=== PATIENT | male | born 2000 | race Caucasian/White ===

== ENCOUNTER → 2020-08-07 13:01 | Outpatient (BNVA) | payer OTHER, SELFPAY | PROVIDERS: Visit Provider Physician Assistant Medical | DX: M46.1 Sacroiliitis, not elsewhere classified (principal) | CPT/HCPCS: 99213 ==

== ENCOUNTER → 2020-08-21 12:53 | Outpatient (BNVA) | payer OTHER, SELFPAY | PROVIDERS: Visit Provider Physician Assistant Medical | DX: M46.1 Sacroiliitis, not elsewhere classified (principal); G57.02 Lesion of sciatic nerve, left lower limb | CPT/HCPCS: 99213 ==

== ENCOUNTER → 2020-09-09 15:15 | Outpatient (BNVA) | payer OTHER, SELFPAY | PROVIDERS: Visit Provider Physician Assistant Medical | DX: M46.1 Sacroiliitis, not elsewhere classified (principal); G57.02 Lesion of sciatic nerve, left lower limb | CPT/HCPCS: 99213 ==

== ENCOUNTER → 2020-10-02 12:59 | Outpatient (BNVA) | payer OTHER, SELFPAY | PROVIDERS: Visit Provider Physician Assistant Medical | DX: M46.1 Sacroiliitis, not elsewhere classified (principal); G57.02 Lesion of sciatic nerve, left lower limb | CPT/HCPCS: 99213 ==

== ENCOUNTER 2020-10-24 08:41 | Outpatient (REF) | payer OTHER, SELFPAY | END 2020-10-24 08:42 | disposition home or self-care (01) | LOC: HO.LAB 08:41 | PROVIDERS: Visit Provider Internal Medicine | DX: Z20.822 Contact with and (suspected) exposure to COVID-19 (principal) | CPT/HCPCS: 36415; C9803; U0003 ==

== ENCOUNTER 2020-12-03 15:00 | Outpatient (RCR) | payer OTHER, SELFPAY ==
--- NOTE | 2020-08-17 16:36 | MHC.PT.EP ---
[facility] [place] Office [place] Office [place] Office [address] Jannet Gustafson [address] [phone] F: [phone] F: [phone] F: [phone] F: [phone] Physical Therapy Plan of Care Date of Evaluation: 08/17/20 Date of Surgery: Diagnosis: L SI flare, piriformis syndrome Assessment: This is a 20 y/o male referred to skilled PT for L SI joint flare/piriformis syndrome. DESIREE: work related injury, slipped off a step and fell onto his left side. The injury occurred 2 months ago. He also had a concussion. Assessment of the lumbar spine and hips reveals pain and tenderness to palpation @ the L SI joint, impaired gait, impaired posture with mild left lateral trunk lean, impaired lumbar spine ROM, (+) SIJ provocation tests, impaired hip ROM, guarded movements, increased tissue tension, decreased strength, pain with PA mobs to lumbar spine, impaired muscle length and SI joint asymmetries. Signs and symptoms appear consistent with SI joint dysfunction. Related functional limitations include: difficulty standing, walking, performing bed mobility, squatting, hiking, playing sports, and lifting. Pt will benefit from skilled PT services 2x/week for 5 weeks in order to reduce impairments and improve limitations. Frequency and Duration: The patient will be seen 2x/week for 5 weeks, minimum of 38 minutes Short Term Goals: -In 2 weeks, Pt to report less than 6/10 pain w/ standing and walking. 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 -In 5 weeks, Pt to demonstrate the ability to perform a functional squat w/o pain. Treatment Plan: Modalities to reduce pain, spasms and effusion. Manual therapy to restore motion and function. Therapeutic exercise to improve strength and flexibility. Neuromuscular re-education for posture and balance. Therapeutic activities to return to functional activities of daily living. Sacroiliac joint assessment and muscle energy techniques. Please sign and return to therapist. Thank you for your referral.
--- NOTE | 2020-12-04 12:35 | MHC.PT.DC ---
[facility] [place] Office [place] Office [place] Office [address] Jannet Gustafson [address] [phone] F: [phone] F: [phone] F: [phone] F: [phone] Physical Therapy Discharge Report Diagnosis: L SI flare, piriformis syndrome Date of Surgery: Date of Evaluation: 08/17/20 Date of Discharge: 12/03/20 Treatments to Date: 21 Cancellations to Date: 4 No Shows to Date: 0 Discharge Status: Achieved Goals Improved Function Independent with HEP Discharge Summary: Pt prepared for D/C today. He demonstrates the ability to complete all exercises w/ resistance and minimal cues for form/core activation. HALINA: 17/50 or 34% impaired. Has HEP and bands. No adverse response. Electronically signed by: Yajaira Lucero PT, DPT Please sign and return to therapist. Thank you for your referral.
== END 2020-12-04 12:51 | disposition other institution (70) ==
LOC: HO.PT 15:00
PROVIDERS: Visit Provider Physician Assistant Medical
DX: M54.32 Sciatica, left side (principal)
CPT/HCPCS: 97014; 97110; 97140; 97161; 97530

== ENCOUNTER → 2020-12-09 11:37 | Outpatient (BNVA) | payer OTHER, SELFPAY | PROVIDERS: PCP Nurse Practitioner Family; Visit Provider Physician Assistant Medical ==

== ENCOUNTER 2020-12-18 08:46 | Outpatient (REF) | payer OTHER, SELFPAY ==
[2020-12-18 09:22] LABS: Basophils Percent Auto 0.4 % (0-2); Eosinophils Absolute Auto 0.3 X10*3/uL (0.0-0.4); Eosinophils Percent Auto 3.2 % (0-4); Hematocrit 46.7 % (42-52); Imm Gran Abs Auto 0.03 X10*3/uL (0.00-0.03); Imm Gran Pct Auto 0.4 % (0.0-0.4); Lymphocytes Absolute Auto 1.7 X10*3/uL (1.2-4.9); Lymphocytes Percent Auto 21.2 % (20-40); MANUAL DIFF FLAG NO; Mean Corpuscular HGB Conc 34.3 g/dl (31.0-36.0); Mean Corpuscular Hemoglobin 28.8 pg (27.0-33.0); Mean Platelet Volume 9.2 fL (9.4-12.4); Monocytes Absolute Auto 0.5 X10*3/uL (0.1-1.2); Monocytes Percent Auto 6.3 % (2-11); Neutrophils Absolute Auto 5.4 X10*3/uL (2.0-8.3); Neutrophils Percent Auto 68.5 % (45-73); Platelet Count 206 X10*3/uL (160-400); Red Blood Count 5.56 X10*6/uL (4.60-5.80); Red Cell Distribution Width 12.5 % (11.0-16.0); White Blood Count 7.9 X10*3/uL (4.8-10.8)
[2020-12-18 10:19] LABS: Anion Gap 14 (12-20); Blood Urea Nitrogen 15 mg/dL (9-16); Calcium 9.2 mg/dL (8.4-10.2); Carbon Dioxide 29 mmol/L (22-29); Chloride 102 mmol/L (96-108); Estimated Glomerular Filt Rate > 60; Glucose Fasting 95 mg/dL (60-99); Potassium 4.3 mmol/L (3.3-5.1); Sodium 141 mmol/L (135-145)
== END 2020-12-18 08:47 | disposition home or self-care (01) ==
LOC: HO.LAB 08:46
PROVIDERS: PCP Internal Medicine; Visit Provider Nurse Practitioner Family
DX: L02.419 Cutaneous abscess of limb, unspecified (principal)
CPT/HCPCS: 36415; 80048; 85025

== ENCOUNTER → 2020-12-18 10:27 | Outpatient (BNVA) | payer OTHER, SELFPAY | PROVIDERS: PCP Nurse Practitioner Family; Visit Provider Physician Assistant Medical | DX: G57.02 Lesion of sciatic nerve, left lower limb (principal); M46.1 Sacroiliitis, not elsewhere classified | CPT/HCPCS: 99213 ==

== ENCOUNTER 2020-12-31 14:13 | Outpatient (REF) | payer OTHER, SELFPAY ==
--- NOTE | ~2020-12-31 | MR_ITS ---
EXAMINATION: MR LUMBAR SPINE WITHOUT CONTRAST CLINICAL INFORMATION: Persistent low back pain radiating to left buttocks. COMPARISON: X-ray lumbar spine dated 05/11/2020. TECHNIQUE: MRI of the lumbar spine was obtained using routine sequences without contrast. FINDINGS: VERTEBRAL BODIES AND PARASPINAL STRUCTURES: There is a mild leftward curvature of the lumbar spine. No compression fractures or subluxations are seen. Small degenerative endplate Schmorl's nodes noted at the lower thoracic levels. The discs are well-hydrated. The marrow signal is fairly homogeneous. The paraspinal soft tissues are unremarkable. The imaged bony pelvis appears normal. CONUS MEDULLARIS AND CAUDA EQUINA: Normal, terminating at the level of L1. No lower cord signal abnormality is seen. The cauda equina nerve roots are normal. A small fatty filum is visible. SPINAL LEVELS: The discs are well-hydrated without central canal stenosis or foraminal narrowing. Mild mid lumbar facet arthropathy noted. There is a very small central disc protrusion at L5-S1 level. MR/MR lumbar spine wo con IMPRESSION: Mild mid lumbar facet arthropathy. Very small central disc protrusion at L5-S1. Otherwise, relatively normal MRI of the lumbar spine.
== END 2020-12-31 14:14 | disposition home or self-care (01) ==
LOC: HO.MRI 14:13
PROVIDERS: Visit Provider Internal Medicine
DX: M54.5 Low back pain (principal)
CPT/HCPCS: 72148

== ENCOUNTER → 2021-01-08 10:33 | Outpatient (BNVA) | payer OTHER, SELFPAY | PROVIDERS: PCP Nurse Practitioner Family; Visit Provider Physician Assistant Medical | DX: G57.02 Lesion of sciatic nerve, left lower limb (principal); M46.1 Sacroiliitis, not elsewhere classified | CPT/HCPCS: 99213 ==

== ENCOUNTER → 2021-02-08 12:59 | Outpatient (BNVA) | payer OTHER, SELFPAY | PROVIDERS: PCP Nurse Practitioner Family; Visit Provider Physician Assistant | DX: G57.02 Lesion of sciatic nerve, left lower limb (principal); M53.3 Sacrococcygeal disorders, not elsewhere classified; F07.81 Postconcussional syndrome | CPT/HCPCS: 99213 ==

== ENCOUNTER 2021-02-18 10:54 | Outpatient (RCR) | payer OTHER, SELFPAY ==
--- NOTE | 2021-02-18 12:08 | MHC.PT.EP ---
[facility] [place] Office [place] Office [place] Office [address] Jannet Gustafson [address] [phone] F: [phone] F: [phone] F: [phone] F: [phone] Physical Therapy Plan of Care Date of Evaluation: Date of Surgery: Diagnosis: persisting L SI/piriformis pain Assessment: 21 y/o M referred to PT from work connection with persisting L SI/piriformis pain. 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 While at work, he fell off an F650 truck backwards landing on his low back and left hip and hit his head. States he had a concussion. He was OOW for one week and then he returned to work part-time for light-duty. He was on light duty part-time until September 2020, when he was let go since the car dealership needed full-time position. He has been OOW since. Of note, he had chiropracter services (states it felt good while he was there but then the pain would be worse later.) He also had 21 visits of PT here from 08/17/2020 - 12/03/2020. He reports PT was helpful and he still does the exercises occasionally but the pain never resolved and pain has worsened as he tries to do more activities. He currently reports difficulty with sleeping, standing, lifting, walking, sitting, hiking, and sports. Examination shows decreased lumbar AROM, decreased L hip IR AROM, decreased strength of L LE, pain L piriformis and low back, SI dysfunction, and impaired postural awareness. S/s consistent with lumbar derangement and SI dysfunction. Recommend PT 2x/week for 5 weeks to address impairments, implement HEP, and optimize functional mobility. Educated pt on posture, use of lumbar roll, log-roll technique, and precautions of exercise. Frequency and Duration: The patient will be seen 2x/week for 5 weeks Short Term Goals: 3 weeks 1. I with HEP 2. Improve lumbar AROM to WNL 3. Pt will demonstrate neutral spine sitting posture 4/5x Penitentiary Goals: 5 weeks 1. I with HEP and self management of sx 2. Pt will demonstrate improved SI mechanics to facilitate walking > 45 min with pain < 3/10 3. Pt will be able to stand > 20 min with pain < 3/10 Treatment Plan: Modalities to reduce pain, spasms and effusion. Manual therapy to restore motion and function. Therapeutic exercise to improve strength and flexibility. Neuromuscular re-education for posture and balance. Therapeutic activities to return to functional activities of daily living. Electronically signed by: Diana Gunderson PT Please sign and return to therapist. Thank you for your referral.
--- NOTE | 2021-02-23 08:01 | MHC.PT.DC ---
[facility] [place] Office [place] Office [place] Office [address] Jannet Gustafson [address] [phone] F: [phone] F: [phone] F: [phone] F: [phone] Physical Therapy Discharge Report Diagnosis: persisting L SI/piriformis pain Date of Surgery: Date of Evaluation: 02/18/21 Date of Discharge: 02/23/21 Treatments to Date: 1 Cancellations to Date: 0 No Shows to Date: 0 Discharge Status: Insurance Declined Tx Discharge Summary: Insurance declined coverage and pt therefore self d/c. Electronically signed by: Diana Gunderson PT Please sign and return to therapist. Thank you for your referral.
== END 2021-02-23 11:15 | disposition other institution (70) ==
LOC: HO.PT 10:54
PROVIDERS: PCP Physician Assistant; Visit Provider Physician Assistant
DX: M54.42 Lumbago with sciatica, left side (principal)
CPT/HCPCS: 97110; 97140; 97161

== ENCOUNTER → 2021-02-25 09:39 | Outpatient (BNVA) | payer OTHER, SELFPAY | PROVIDERS: PCP Physician Assistant; Visit Provider Physician Assistant Medical | DX: G57.02 Lesion of sciatic nerve, left lower limb (principal); S33.6XXD Sprain of sacroiliac joint, subsequent encounter; S06.9X0D Unspecified intracranial injury without loss of consciousness, subsequent encounter; X58.XXXD Exposure to other specified factors, subsequent encounter | CPT/HCPCS: 99213 ==

== ENCOUNTER → 2021-04-02 10:37 | Outpatient (BNVA) | payer OTHER, SELFPAY | PROVIDERS: PCP Physician Assistant; Visit Provider Internal Medicine | DX: G57.02 Lesion of sciatic nerve, left lower limb (principal); M53.2X8 Spinal instabilities, sacral and sacrococcygeal region; S06.9X0D Unspecified intracranial injury without loss of consciousness, subsequent encounter; X58.XXXD Exposure to other specified factors, subsequent encounter | CPT/HCPCS: 99213 ==

== ENCOUNTER 2021-05-26 11:38 | Outpatient (REF) | payer OTHER, SELFPAY ==
--- NOTE | ~2021-05-26 | XR_ITS ---
EXAMINATION: XR CERVICAL SPINE CLINICAL INFORMATION: Cervicalgia. COMPARISON: None TECHNIQUE: 3 views of the cervical spine were obtained. FINDINGS: There are no prevertebral soft tissue or bony abnormalities demonstrated. No compression fractures or subluxations are identified. Alignment is maintained at the atlanto-axial articulation. The disc spaces are preserved. No endplate changes are seen. The prevertebral soft tissues are normal. The foramina are patent. XR/XR cervical spine 3V IMPRESSION: Unremarkable examination.
== END 2021-05-26 11:39 | disposition home or self-care (01) ==
LOC: HO.XRAY 11:38
PROVIDERS: PCP Physician Assistant; Visit Provider Physician Assistant
DX: M54.2 Cervicalgia (principal)
CPT/HCPCS: 72040

== ENCOUNTER 2021-07-07 10:00 | Outpatient (RCR) | payer OTHER, SELFPAY ==
--- NOTE | 2021-05-25 13:00 | MHC.PT.EP ---
[facility] [place] Office [place] Office [place] Office [address] Jannet Gustafson [address] [phone] F: [phone] F: [phone] F: [phone] F: [phone] Physical Therapy Plan of Care Date of Evaluation: Date of Surgery: Diagnosis: CERVICALGIA Assessment: 21 YO MALE REF TO PT FOR CERVICALGIA- HE NOTES RESIDUAL FROM A FALL HE SUSTAINED FROM AN F650 TRUCK ONTO PAVEMENT IN 04/2020. OBJECTIVE FINDINGS INCLUDE DECR POSTURE, LIMITED CERVICAL ROM, SOFT TISSUE RESTRICTION IN ACE UPPER CERV/ SUBOCC PS MM, AND PAIN CENTRAL CERV APPROX C3 LEVEL. FUNCTIONAL LIMITATIONS INCLUDE DECR SLEEPING ABILITY, DECR LIFTING JASSON, GENERAL DECR MOBILITY W ADLs- HE IS CURRENTLY UNEMPLOYED. Pt HAS AN ORDER FOR AN XRAY AND WILL PURSUE THIS MONDAY AND WILL GUIDE TREATMENTS ACCORDINGLY TO ASIST Pt W PAIN MGMT , MOBILITY, AND DEV HEP/ SX MGMT TECHN. Frequency and Duration: The patient will be seen 2x WK x 5 WKS Short Term Goals: Pt's cervical pain decr to 2-3/10 in 2 wks Pt DEMON WFL CERVICAL AROM, ESPEC ACE CERV ROTAT IN 2 WKS Pt INDEP W SELF- POSTURAL/ BODY MECH CORRECTION IN 2 WKS Residential Goals: Pt INDEP W HEP AND SELF- SX MGMT TECHN IN 5 WKS Pt'S NPDI IMPROVED BY10 POINTS IN 5 WKS Treatment Plan: Modalities to reduce pain, spasms and effusion. Manual therapy to restore motion and function. Therapeutic exercise to improve strength and flexibility. Neuromuscular re-education for posture and balance. Therapeutic activities to return to functional activities of daily living. Electronically signed by: Carin Haas, PT Please sign and return to therapist. Thank you for your referral.
--- NOTE | 2021-08-06 14:45 | MHC.PT.DC ---
[facility] [place] Office [place] Office [place] Office [address] Jannet Gustafson [address] [phone] F: [phone] F: [phone] F: [phone] F: [phone] Physical Therapy Discharge Report Diagnosis: CERVICALGIA Date of Surgery: Date of Evaluation: 05/25/21 Date of Discharge: 08/06/21 Treatments to Date: 10 Cancellations to Date: 0 No Shows to Date: 0 Discharge Status: Improved Function Independent with HEP Discharge Summary: Familia has progressed overall in PT and demonstrates increased upper back strength, improved postural awareness, improved body mechanics and is RTW. He received cervical traction, manual techniques, therapeutic taping, and progressive ther exer. His cervical rotation remains limited, right greater than left. Electronically signed by: Carin Haas,PT Please sign and return to therapist. Thank you for your referral.
== END 2021-08-06 14:44 | disposition home or self-care (01) ==
LOC: HO.PT 10:00
PROVIDERS: PCP Physician Assistant; Visit Provider Physician Assistant
DX: M54.2 Cervicalgia (principal)
CPT/HCPCS: 97012; 97110; 97112; 97140; 97162; 97530

== ENCOUNTER 2022-08-11 07:48 | Outpatient (REF) | payer OTHER, SELFPAY ==
--- NOTE | ~2022-08-11 | MR_ITS ---
EXAMINATION: MR CERVICAL SPINE WITHOUT CONTRAST CLINICAL INFORMATION: Neck pain. COMPARISON: X-ray dated 05/26/2021. TECHNIQUE: MRI of the cervical spine was obtained using routine sequences without contrast. FINDINGS: The marrow signal is homogeneous and the discs are well-hydrated. There are no compression fractures. Mild uncovertebral joint spurring noted at the C3-C4 level without foraminal encroachment. Tiny central disc protrusion at C5-C6. No additional disc protrusions are seen. The central canal is widely patent. The remaining neural foramina are normal. The facet joints are normal in appearance. The craniovertebral junction and imaged portions of the brain parenchyma appear normal. No cord signal abnormality or syrinx is seen. The vertebral artery flow-voids are maintained. The paraspinal soft tissues are normal. The imaged lung apices are grossly clear. MR/MR cervical spine wo con IMPRESSION: Aside from a tiny central disc protrusion at C5-C6 and mild uncovertebral joint spurring at the C3-C4 level, relatively normal MRI of the cervical spine.
== END 2022-08-11 07:49 | disposition home or self-care (01) ==
LOC: HO.MRI 07:48
PROVIDERS: Visit Provider Physician Assistant
DX: M54.2 Cervicalgia (principal)
CPT/HCPCS: 72141

== ENCOUNTER → 2023-03-27 13:31 | Outpatient (REF) | payer OTHER, SELFPAY ==
--- NOTE | 2023-03-27 13:34 | CA_ITS ---
Acquisition Time: 2023-03-27 13:47:44 Total Exercise Time: 00:10:32 Test Indications: CP, ELEVATED B/P Medications: SEE H Protocol: NOVA Max HR: 179 BPM 91% of Pred: 195 BPM Max BP: 188/050 mmHG Max Work Load: 12.5 METS Exercise stress test with exercise 10 min 32 sec of Nova protocol, achieving 91% MPHR, 12.5 METs, without anginal symptoms, without arrythmia, with normotensive response to exercise with max BP 188/50, without EKG changes meeting criteria for ischemia. Test reviewed with Dr Munguia. Referred By: Marleny Price Overread By: JOSEPH DICKENS
== END ==
LOC: HO.CARD 13:31
PROVIDERS: Visit Provider Nurse Practitioner Family
DX: R07.89 Other chest pain (principal)
CPT/HCPCS: 93017

== ENCOUNTER 2023-07-17 09:57 | Outpatient (AMB) | payer OTHER, SELFPAY ==
[2023-07-17 09:59] VITALS: BP 118/62; PULSE 67; RESP 17; O2SAT 97; BMI 28.3
--- NOTE | 2023-07-17 09:59 | A.OFFPC_ITS ---
Vital Signs 3 07/17/23 09:59 Height 5 ft 9 in Weight 191 lb 6 oz BMI 28.3 BP 118/62 Blood Pressure Location Lt brachial Position Sitting Respiration 17 Pulse 67 Pulse Source Pulse Oximeter Pulse Oximetry (%) 97 Oxygen Delivery Method Room Air Intake Visit Reasons: Annual Exam Intake Note: Patient is here today for a physical. Pt refused flu vaccine. 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 Accompanied by: Self / Same As Patient Allergies No Known Allergies [No Known Allergies*] Allergy (Verified 07/17/23 10:08) Medication List - Last Reconciled 07/17/23 by Nash Simons PA-C albuterol sulfate 90 mcg/actuation (Ventolin HFA) 1 inh inhalation QID PRN 30 days Tobacco use date assessed: 07/17/23 Dental Screening Dental Screen Date: 07/17/23 Did you have a dental visit in the last 12 months?: Yes Did you have a dental problem in the last 6 months where you did not have access to dental care?: No Was dental information given to patient?: Patient has dentist HPI Annual Exam 2 HPI0 Details Patient is a 23 year-old male here today for a PE. .? Patient's past medical history significant for asthma, GERD, cervical spine pain ( work related injury) . Concerns--> has multiple somatic complaints today, reports left hip pain worse after walking [place] the [place] continued neck pain with decreased range of motion. Has had neck pain since his work related injury several years ago. MRI of cervical spine showing disc herniation. Also reports having bilateral lateral feet pain. Asthma: Has been controlled with as needed use of albuterol inhaler. VAccine: Considering COVID vac, Declines flu.? UTD Tdap. ? PFSH Medical History Armpit abscess Armpit abscess Asthma Family History Mother Diabetes Heart problem CAD (coronary artery disease) Father High blood pressure Asthma Mental health disorder Brother ESRD (end stage renal disease) on dialysis Social History (Updated 07/17/23 @ 10:13 by Nash Simons PA-C) Housing: Apartment Alcohol intake: never Patient Tobacco Use Status: Never used Tobacco e-Cigarette/Vaping Use: Never Used Second Hand Smoke Exposure: No service: No Current occupational status: employed Current occupation: [employer] Cognitive needs: No Hearing needs: No Vision needs: No Questionnaire PHQ-9 Over the last 2 weeks, how often have you been bothered by any of the following problems? 1. Little interest or pleasure in doing things: not at all 2. Feeling down, depressed, or hopeless: not at all 3. Trouble falling or staying asleep, or sleeping too much: not at all 4. Feeling tired or having little energy: not at all 5. Poor appetite or overeating: not at all 6. Feeling bad about yourself - or that you are a failure or have let yourself or your family down: not at all 7. Trouble concentrating on things, such as reading the newspaper or watching television: not at all 8. Moving or speaking so slowly that other people could have noticed. Or the opposite - being so fidgety or restless that you have been moving around a lot more than usual: not at all 9. Thoughts that you would be better off or of hurting yourself in some way: not at all Total score: 0 Depression Screening Interpretation: Negative 27845 - PHQ-9 Billing: Yes Source: Developed by Drs. Vinnie Drake, Ramez Dumont and colleagues, with an educational kasi from [employer]. Thrive Questionnaire Date Thrive assessed: 03/21/23 KISHORE-7 AMB Questionnaire KISHORE-7 Date KISHORE - 7 assessed: 07/17/23 Feeling nervous, anxious, or on edge: 2 = More than half the days Not being able to stop or control worryin = More than half the days Worrying too much about different things: 2 = More than half the days Trouble relaxin = More than half the days Being so restless that it is hard to sit still: 1 = Several days Becoming easily annoyed or irritable: 2 = More than half the days Feeling afraid as if something awful might happen: 1 = Several days Total KISHORE-7 score (0-4 normal; 5-9 mild; 10-14 moderate; 15-21 severe): 12 Source: Developed by Drs. Vinnie Drake, Ramez Dumont and colleagues, with an educational kasi from [employer]. KISHORE-7 Assessment Billing KISHORE-7 Assessment Tool: KISHORE-7 Assessment 00894 Review of Systems Const Denies body aches, Denies chills, Denies excessive sweating, Denies fatigue, Denies fever(s) and Denies headache(s) Eyes Denies blurry vision ENT Denies dysphagia, Denies vertigo, Denies dizziness, Denies headache(s), Denies hearing loss and Denies tinnitus Card Denies chest pain, Denies chest pain with activity, Denies syncope, Denies irregular heart rhythm and Denies dyspnea Resp Denies chest congestion, Denies cough, Denies hemoptysis, Denies dyspnea and Denies wheezing GI Denies abdominal pain, Denies melena, Denies hematochezia, Denies coffee ground emesis, Denies dysphagia, Denies diarrhea, Denies nausea and Denies vomiting Denies difficulty urinating, Denies dysuria, Denies urinary frequency, Denies urinary hesitancy and Denies urinary urgency Musc Denies arthralgias, Denies limited range of motion, Denies muscle cramps and Denies muscle weakness Skin/Breast Denies rash and Denies skin ulcer Neuro Denies Abnormal speech present, Denies confusion, Denies vertigo, Denies dizziness, Denies syncope, Denies headache(s), Denies memory loss and Denies seizure-like activity Psych Denies anxiety, Denies confusion, Denies depression, Denies memory loss, Denies panic attacks and Denies paranoia Endo Denies excessive sweating, Denies fatigue, Denies flushing, Denies polydipsia and Denies polyuria Aller/Immun Denies wheezing Physical exam (Primary Care) Vital Signs: Last Vital Signs Pulse 67 07/17/23 09:59 Resp 17 07/17/23 09:59 BP 118/62 07/17/23 09:59 Pulse Ox 97 07/17/23 09:59 Oxygen Delivery Method Room Air 07/17/23 09:59 BMI result Body Mass Index 28.3 Tobacco/Smoking Status: Tobacco use Status Tobacco use date assessed 07/17/23 07/17/23 10:06 Patient Tobacco Use Status Never used Tobacco 07/17/23 10:13 e-Cigarette/Vaping Use Never Used 07/17/23 10:13 PHQ-9: PHQ-9 Score PHQ-9: Total score 0 10/02/23 10:11 Depression Screening Interpretation: Negative Thrive Assessment: Date of Thrive Assessment Date Thrive assessed 03/21/23 07/17/23 10:04 Const General: cooperative, comfortable, no acute distress, alert and awake; No confusion Orientation/consciousness: oriented to person, oriented to place, patient oriented x3 and No confusion HENMT Head: Yes normocephalic Ears: external ears normal and TM's normal bilaterally Face and sinus: No sinus tenderness Mouth: Normal oral and palatal mucosa present and tongue normal Teeth and gingiva: dentition normal and gingiva normal Throat: Yes posterior oropharynx normal, Yes tonsils normal and Yes uvula midline Eyes Conjunctivae: conjunctivae normal Sclerae: sclerae normal Pupils: Equal, round and reactive pupils present EOM: EOMs intact bilaterally Direct Ophthalmoscopy: No no photophobia Neck Neck: Yes no lymphadenopathy, No tender and Yes no JVD Thyroid: Thyroid normal Carotids: no bruits Chest Chest palpation & inspection: no tenderness Resp Effort & Inspection: normal respiratory effort, no audible wheezes, not labored and no stridor Auscultation: no crackles, no rales, no rhonchi and no wheezes Cardio Jugular venous distension: no JVD Rate: regular rate, not bradycardic and not tachycardic Rhythm: regular rhythm Bruits: no carotid bruits Peripheral pulses: Peripheral pulses 2+ throughout GI Inspection: Yes normal to inspection, No abdominal wall ecchymosis and No visible herniation Palpation (GI): Soft to palpation, nontender, no guarding, not rigid and No hepatosplenomegaly present Auscultation: normoactive bowel sounds General: Yes no CVA tenderness Back/Spine/Pelvis Back: no CVA tenderness and No back tenderness Cervical Spine: cervical ROM normal Thoracic/Lumbar Spine: thoracic and lumbar spine normal to inspection, straight leg raise negative bilaterally, No thoraco-lumbar ROM limited and No lumbar spinal tenderness Skin Lesions: no lesions Rashes: no rashes Wounds: no wounds Neuro General: oriented to person, oriented to place, patient oriented x3, CN's II-XI intact bilaterally and No confusion Cranial nerves: Yes Equal, round and reactive pupils present and Yes Normal accommodation reflex present Cognition (Neuro): normal cognition Speech: No Abnormal speech present Gait exam (Neuro): Normal gait present Motor exam (neuro): 5/5 motor strength present throughout Extrem Right upper extremity: full ROM; no cyanosis Left upper extremity: full ROM; no cyanosis Right lower extremity: no edema Left lower extremity: no edema Ankle/foot/toe images: 2 1. TENDERNESS TO PALPATION OVER THIS AREA OUTLINED. NO ERYTHEMA OR EDEMA NOTED. Psych Appearance: grossly normal Mental Status: mental status grossly normal Affect: normal affect Attitude: cooperative Thought process: Normal thought process present Assessment and Plan Assessment & Plan (1) Annual physical exam: Code(s): Z00.00 - Encounter for general adult medical examination without abnormal findings (2) Screening for diabetes mellitus (DM): Code(s): Z13.1 - Encounter for screening for diabetes mellitus (3) Asthma: Code(s): J45.909 - Unspecified asthma, uncomplicated Qualifiers: Asthma complication type: uncomplicated Asthma persistence: i ntermittent Asthma severity: mild Qualified Code(s): J45.20 - Mild intermittent asthma, uncomplicated Plan: Patient reports asthma is fairly well controlled. Denies any nighttime awakenings with asthma symptoms. Has not had any recent asthma exacerbations. Only uses his albuterol inhaler on a very limited p.r.n. basis. (4) Cervical spine pain: Code(s): M54.2 - Cervicalgia Plan: Continues to decreased range of motion in his cervical spine ever since his work related incident. MRI of the cervical spine does show disc herniation. Has done physical therapy in the past which was somewhat helpful. He is willing to do another round of physical therapy as he would like to regain some rotational range of motion. (5) Left hip pain: Code(s): M25.552 - Pain in left hip Plan: Reports having left lateral hip pain that radiates down the lateral aspect of his left thigh. Likely and IT band syndrome and advised to do IT band stretches and ice the outside of his left hip. (6) Foot pain, bilateral: Code(s): M79.671 - Pain in right foot; M79.672 - Pain in left foot Plan: He reports having bilateral feet pain. Denies any trauma to his feet and does wear good fitting shoe wear. He will try to use sole inserts help reduce his foot pain. (7) Generalized anxiety disorder: Code(s): F41.1 - Generalized anxiety disorder Plan: Patient's KISHORE-7 score positive for moderate anxiety which has been existing condition for him. He reports he is speaking with a mental health therapist now and is able to manage his anxiety without medications. Orders: Orders 2 XR hip LT 1V Today M25.552 - Pain in left hip XR foot LT 2V Today M79.671 - Pain in right foot, M79.672 - Pain in left foot XR foot RT 2V Today M79.671 - Pain in right foot, M79.672 - Pain in left foot PT Evaluation and Treatment Today M54.2 - Cervicalgia Referrals 2 Pain Management Referral M54.2 - Cervicalgia Medications: Refilled 2 albuterol sulfate 90 mcg/actuation (Ventolin HFA) 1 inh inhalation QID 30 days PRN 8.5 grams 3RF shortness of breath or wheezing J45.20 - Mild intermittent asthma, uncomplicated Coding Level of Care Code Est Pt Prev Care 18-39y(26744) Diagnoses Annual physical exam Z00.00 Screening for diabetes mellitus (DM) Z13.1 Mild intermittent asthma without complication J45.20 Asthma complication type: uncomplicated Asthma persistence: intermittent Asthma severity: mild Cervical spine pain M54.2 Left hip pain M25.552 Foot pain, bilateral M79.671; M79.672 Generalized anxiety disorder F41.1 Additional Codes KISHORE-7 Assessment Billing - KISHORE-7 Assessment Tool: KISHORE-7 Assessment [id number] ([id number])
== END 2023-07-17 10:32 | disposition home or self-care (01) ==
PROVIDERS: Visit Provider Physician Assistant
DX: Z00.00 Encounter for general adult medical examination without abnormal findings (principal); Z13.1 Encounter for screening for diabetes mellitus; J45.20 Mild intermittent asthma, uncomplicated; M54.2 Cervicalgia; M25.552 Pain in left hip; M79.671 Pain in right foot; K21.9 Gastro-esophageal reflux disease without esophagitis; M79.672 Pain in left foot; F41.1 Generalized anxiety disorder
CPT/HCPCS: 99395

== ENCOUNTER 2023-07-21 09:43 | Outpatient (AMB) | payer OTHER, SELFPAY ==
--- NOTE | 2023-07-21 09:52 | MHC.OFFVIS ---
Intake Vital Signs 07/21/23 09:56 Height 5 ft 9 in Weight 196 lb BMI 28.9 BP 128/72 Blood Pressure Location Lt brachial Position Sitting Respiration 18 Pulse 63 Pulse Source Pulse Oximeter Pulse Oximetry (%) 98 Oxygen Delivery Method Room Air Intake Visit Reasons: cervicalgia Allergies No Known Allergies [No Known Allergies*] Allergy (Verified 07/21/23 09:56) HPI HPI Comments History of Present Illness Details Familia is a very pleasant 23-year-old male who presented to the office today for evaluation management of his chronic pain. 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 He complains of midline cervical neck pain worse with movement of his neck. He also endorses limited range of motion of his neck. He denies radiation of the pain down either arm. He denies numbness tingling or weakness of either upper extremity. Pain today is rated as a 9/10, constant, sharp. He has completed physical therapy and manual manipulation with chiropractor without improvement, recently saw his primary care doctor who ordered physical therapy again which he is waiting for a call to schedule. He has tried nonsteroidal anti-inflammatory medication, Tylenol and muscle relaxers all without relief. He has tried a Tens unit which helps very little. Patient had an MRI less than 1 year ago, results as per below In terms of muscle damage conditions described as stabbing, sickening, tight, squeezing, punishing and killing. Pain is negatively impacting patient's sleep, ability to perform activities of daily living, normal functioning and work. [facility] Medical History Armpit abscess Armpit abscess Asthma Family History Mother Diabetes Heart problem CAD (coronary artery disease) Father High blood pressure Asthma Mental health disorder Brother ESRD (end stage renal disease) on dialysis Social History (Updated 07/17/23 @ 10:13 by Nash Simons PA-C) Housing: Apartment Alcohol intake: never Patient Tobacco Use Status: Never used Tobacco e-Cigarette/Vaping Use: Never Used Second Hand Smoke Exposure: No service: No Current occupational status: employed Current occupation: [employer] Cognitive needs: No Hearing needs: No Vision needs: No Review of Systems Const All systems reviewed & are unremarkable except as noted in HPI and below Physical Exam Vital Signs: Last Vital Signs Pulse 63 07/21/23 09:56 Resp 18 07/21/23 09:56 BP 128/72 07/21/23 09:56 Pulse Ox 98 07/21/23 09:56 Oxygen Delivery Method Room Air 07/21/23 09:56 BMI result Body Mass Index 28.9 General: awake, alert, oriented. Answers questions appropriately. Fully engaged in examination. Skin: warm, dry, intact HEENT: Normocephalic. Hearing intact. Cardiac: External chest normal in appearance. Respiratory: No cough, audible wheezing or stridor. Abdomen: without gross distension. Neurological: Oriented to person, place, time and situation. Thought process intact. No gait abnormalities appreciated. Psychiatric: Appropriate mood and affect. Good judgment and insight. Back/Spine/Pelvis Other: Cervical Spine: Visible inspection without gross abnormality Nontender over Trapezius muscles Tender to palpation over paraspinal muscles Tender to palpation over cervical vertebrae ROM: full flexion and extension. Decreased bilateral rotation and lateral flexion bilaterally with reported pain increase. Spurling compression test positive. Elvey's tension test negative Lhermitte's test negative. BUE strength 5/5 2+ radial pulses. Results Reviewed Results Reviewed: 08/11/2022 MRI of the cervical spine FINDINGS: The marrow signal is homogeneous and the discs are well-hydrated. There are no compression fractures. Mild uncovertebral joint spurring noted at the C3-C4 level without foraminal encroachment. Tiny central disc protrusion at C5-C6. No additional disc protrusions are seen. The central canal is widely patent. The remaining neural foramina are normal. The facet joints are normal in appearance. The craniovertebral junction and imaged portions of the brain parenchyma appear normal. No cord signal abnormality or syrinx is seen. The vertebral artery flow-voids are maintained. The paraspinal soft tissues are normal. The imaged lung apices are grossly clear. IMPRESSION: Aside from a tiny central disc protrusion at C5-C6 and mild uncovertebral joint spurring at the C3-C4 level, relatively normal MRI of the cervical spine. 05/26/2021 XR/XR cervical spine 3V FINDINGS: There are no prevertebral soft tissue or bony abnormalities demonstrated. No compression fractures or subluxations are identified. Alignment is maintained at the atlanto-axial articulation. The disc spaces are preserved. No endplate changes are seen. The prevertebral soft tissues are normal. The foramina are patent. IMPRESSION: Unremarkable examination. Assessment & Plan Assessment & Plan (1) Cervicodynia: Code(s): M54.2 - Cervicalgia Plan Familia is a very pleasant 23 year old male who presents to the office today for evaluation and management of his chronic neck pain. Patient has been suffering with this pain for greater than one year and has failed conservative treatment includind PT, NSAIDs, tylenol, HEP and muscle relaxers. Will send Flexeril 10mg po qhs Patient has order for PT eval and treat. He is awaiting a call to schedule. XR CS ordered to update, most recent imaging is MRI 07/2022. He has not had an xray since 2020. Discussed options for treatment including diagnostic interventional testing, epidural steroid injections, peripheral nerve stimulation with Sprint, RFA and more permanent neuromodulation. Informational pamphlets provided. Will schedule for Fluoroscopy guided bilateral C4-C5-C6 MBBs with local anesthetic. Patient will be given 1mg SL ativan prior to procedure d/t anxiety and fear of needles. Patient aware he will need a ride. All questions and concerns have been answered and patient agrees with the plan. Follow up after injections and sooner if needed. Orders: Orders XR cervical spine w flex/ext Today M54.2 - Cervicalgia Medications: New cyclobenzaprine 10 mg PO BEDTIME PRN 30 tabs 0RF muscle spasm Coding Level of Care Code New Pt Level 4 (45156) Diagnoses Cervicodynia M54.2
[2023-07-21 09:56] VITALS: BP 128/72; PULSE 63; RESP 18; O2SAT 98; BMI 28.9
== END 2023-07-21 10:26 | disposition home or self-care (01) ==
PROVIDERS: PCP Physician Assistant; Visit Provider Registered Nurse Emergency
DX: M54.2 Cervicalgia (principal)
CPT/HCPCS: 99204

== ENCOUNTER → 2023-07-21 09:43 | Outpatient (BNVA) | payer OTHER, SELFPAY | PROVIDERS: Visit Provider Registered Nurse Emergency ==

== ENCOUNTER 2023-07-27 09:50 | Outpatient (REF) | payer OTHER, SELFPAY ==
--- NOTE | ~2023-07-27 | XR_ITS ---
EXAMINATION: XR CERVICAL SPINE CLINICAL INFORMATION: Cervicalgia. COMPARISON: Radiographs dated 05/26/2021. TECHNIQUE: 6 views of the cervical spine, inclusive of flexion and extension views, were obtained. FINDINGS: The vertebral alignment is normal. No intrinsic bony abnormality. The disc heights and neural foramina are well maintained. The endplates and posterior elements are normal. No fracture or subluxation. The surrounding prevertebral soft tissues are unremarkable. XR/XR cervical spine w flex/ext IMPRESSION: Unremarkable examination.
--- NOTE | ~2023-07-27 | XR_ITS ---
EXAMINATION: XR HIP, LEFT CLINICAL INFORMATION: Left hip pain COMPARISON: None available. TECHNIQUE: Two views of the left hip. FINDINGS: Alignment is anatomic. Moderate narrowing along the axial and superior aspects of the hip joint space with sclerosis. Subtle sclerosis and flattening/remodeling of the femoral head. XR/XR hip LT 1V IMPRESSION: Moderate narrowing along the axial and superior aspects of the hip joint space with sclerosis. Subtle sclerosis and flattening/remodeling of the femoral head. Subtle area of lucency, approximately 2.6 cm, along the medial aspect of the femoral head. Tiny focal ossific projection along the cortex of the medial inferior aspect of the femoral head. IMPRESSION: Moderate narrowing along the axial and superior aspects of the hip joint space with sclerosis. Subtle sclerosis and flattening/remodeling of the femoral head. Subtle area of lucency along the medial aspect of the femoral head with tiny focal ossific projection along the cortex of the medial inferior aspect of the femoral head. This appearance is concerning for underlying bony pathology. CT scan or MRI recommended for further evaluation as these exam are much more sensitive for detection of fracture or other pathologic lesions. This study was presented today 08/02/2023 at 9:45 AM for interpretation. PSA staff will provide results to referring provider at this time.
--- NOTE | ~2023-07-27 | XR_ITS ---
EXAMINATION: XR BILATERAL FEET CLINICAL INFORMATION: Bilateral foot pain COMPARISON: None TECHNIQUE: 3 views of each foot. FINDINGS: Right foot: Tiny plantar and dorsal calcaneal spurs. Mild degenerative changes with lateral hypertrophic change at the first metatarsophalangeal joint. No displaced fracture. Left foot: Tiny cystic lucency along the dorsal aspect of the fifth metatarsal head. Mild degenerative changes with lateral hypertrophic change at the first metatarsophalangeal joint. No displaced fracture. XR/XR foot LT 2V IMPRESSION: 1. Tiny right plantar and dorsal calcaneal spurs. 2. Mild degenerative changes in the bilateral first metatarsophalangeal joint. No displaced fracture. Recommend follow-up imaging in 10-14 days if fracture is suspected. Additional imaging with CT scan or MRI should be considered for better visualization as these modalities are much more sensitive for detection of fracture or other underlying pathology.
--- NOTE | ~2023-07-27 | XR_ITS ---
EXAMINATION: XR BILATERAL FEET CLINICAL INFORMATION: Bilateral foot pain COMPARISON: None TECHNIQUE: 3 views of each foot. FINDINGS: Right foot: Tiny plantar and dorsal calcaneal spurs. Mild degenerative changes with lateral hypertrophic change at the first metatarsophalangeal joint. No displaced fracture. Left foot: Tiny cystic lucency along the dorsal aspect of the fifth metatarsal head. Mild degenerative changes with lateral hypertrophic change at the first metatarsophalangeal joint. No displaced fracture. XR/XR foot RT 2V IMPRESSION: 1. Tiny right plantar and dorsal calcaneal spurs. 2. Mild degenerative changes in the bilateral first metatarsophalangeal joint. No displaced fracture. Recommend follow-up imaging in 10-14 days if fracture is suspected. Additional imaging with CT scan or MRI should be considered for better visualization as these modalities are much more sensitive for detection of fracture or other underlying pathology.
== END 2023-07-27 09:51 | disposition home or self-care (01) ==
LOC: HO.XRAY 09:50
PROVIDERS: Absent Provider Physician Assistant; PCP Physician Assistant; Visit Provider Registered Nurse Emergency
DX: M54.2 Cervicalgia (principal); M79.671 Pain in right foot; M79.672 Pain in left foot; M25.552 Pain in left hip
CPT/HCPCS: 72052; 73501; 73620

== ENCOUNTER 2023-08-10 08:35 | Outpatient (AMB) | payer OTHER, SELFPAY ==
--- NOTE | 2023-08-10 08:44 | A.OFFVIS_ITS ---
Intake Vital Signs 08/10/23 08:45 Height 5 ft 9 in Weight 198 lb BMI 29.2 BP 128/78 Blood Pressure Location Lt brachial Respiration 16 Pulse 75 Pulse Source Pulse Oximeter Pulse Oximetry (%) 98 Oxygen Delivery Method Room Air Intake Visit Reasons: Follow up discussion about options /Confirmed Allergies No Known Allergies [No Known Allergies*] Allergy (Verified 08/10/23 08:46) HPI HPI Comments History of Present Illness Details Familia presents back to the office for follow up bilateral neck pain. Since last visit patient reports pain is unchanged. He spoke with family about injections on his neck, his brother had injections and pain was worse after . Patient cancelled his appt for diagnostic injections after discussion with his family. He is looking for other options today. He has taken muscle relaxer a couple times, his pain improves but they make him sleepy so he only takes when the pain is severe. He is not taking any other medications for his pain. He is still waiting for a call from PT to schedule. He does report TENS unit that a chiropractor used on him in the past was beneficial but insurance stopped covering chiropractor visits. He feels that in the past he received the most benefit from treatment he received at chiropractor office. Xray results reviewed with patient, results as per below. Prior: Familia is a very pleasant 23-year-old male who presented to the office today for evaluation management of his chronic pain. 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 He complains of midline cervical neck pain worse with movement of his neck. He also endorses limited range of motion of his neck. He denies radiation of the pain down either arm. He denies numbness tingling or weakness of either upper extremity. Pain today is rated as a 9/10, constant, sharp. He has completed physical therapy and manual manipulation with chiropractor without improvement, recently saw his primary care doctor who ordered physical therapy again which he is waiting for a call to schedule. He has tried nonsteroidal anti-inflammatory medication, Tylenol and muscle relaxers all without relief. He has tried a Tens unit which helps very little. Patient had an MRI less than 1 year ago, results as per below In terms of muscle damage conditions described as stabbing, sickening, tight, squeezing, punishing and killing. Pain is negatively impacting patient's sleep, ability to perform activities of daily living, normal functioning and work. [facility] Medical History Armpit abscess Armpit abscess Asthma Family History Mother Diabetes Heart problem CAD (coronary artery disease) Father High blood pressure Asthma Mental health disorder Brother ESRD (end stage renal disease) on dialysis Social History (Updated 07/17/23 @ 10:13 by Nash Simons PA-C) Housing: Apartment Alcohol intake: never Patient Tobacco Use Status: Never used Tobacco e-Cigarette/Vaping Use: Never Used Second Hand Smoke Exposure: No service: No Current occupational status: employed Current occupation: [employer] Cognitive needs: No Hearing needs: No Vision needs: No Review of Systems Const All systems reviewed & are unremarkable except as noted in HPI and below Physical Exam Vital Signs: Last Vital Signs Pulse 75 08/10/23 08:45 Resp 16 08/10/23 08:45 BP 128/78 08/10/23 08:45 Pulse Ox 98 08/10/23 08:45 Oxygen Delivery Method Room Air 08/10/23 08:45 BMI result Body Mass Index 29.2 General: awake, alert, oriented. Answers questions appropriately. Fully engaged in examination. Skin: warm, dry, intact HEENT: Normocephalic. Hearing intact. Cardiac: External chest normal in appearance. Respiratory: No cough, audible wheezing or stridor. Abdomen: without gross distension. Neurological: Oriented to person, place, time and situation. Thought process intact. No gait abnormalities appreciated. Psychiatric: Appropriate mood and affect. Good judgment and insight. Back/Spine/Pelvis Other: Cervical Spine: Visible inspection without gross abnormality Nontender over Trapezius muscles Tender to palpation over paraspinal muscles Nontender to palpation over cervical vertebrae ROM: full flexion and extension. Decreased bilateral rotation and lateral flexion bilaterally with reported pain increase. Spurling compression test positive. Elvey's tension test negative Lhermitte's test negative. BUE strength 5/5 Results Reviewed Results Reviewed: 07/27/23 XR/XR cervical spine w flex/ext FINDINGS: The vertebral alignment is normal. No intrinsic bony abnormality. The disc heights and neural foramina are well maintained. The endplates and posterior elements are normal. No fracture or subluxation. The surrounding prevertebral soft tissues are unremarkable. IMPRESSION: Unremarkable examination. 08/11/2022 MRI of the cervical spine FINDINGS: The marrow signal is homogeneous and the discs are well-hydrated. There are no compression fractures. Mild uncovertebral joint spurring noted at the C3-C4 level without foraminal encroachment. Tiny central disc protrusion at C5-C6. No additional disc protrusions are seen. The central canal is widely patent. The remaining neural foramina are normal. The facet joints are normal in appearance. The craniovertebral junction and imaged portions of the brain parenchyma appear normal. No cord signal abnormality or syrinx is seen. The vertebral artery flow-voids are maintained. The paraspinal soft tissues are normal. The imaged lung apices are grossly clear. IMPRESSION: Aside from a tiny central disc protrusion at C5-C6 and mild uncovertebral joint spurring at the C3-C4 level, relatively normal MRI of the cervical spine. 05/26/2021 XR/XR cervical spine 3V FINDINGS: There are no prevertebral soft tissue or bony abnormalities demonstrated. No compression fractures or subluxations are identified. Alignment is maintained at the atlanto-axial articulation. The disc spaces are preserved. No endplate changes are seen. The prevertebral soft tissues are normal. The foramina are patent. IMPRESSION: Unremarkable examination. Assessment & Plan Assessment & Plan (1) Cervicodynia: Code(s): M54.2 - Cervicalgia Plan Familia is a very pleasant 23 year old male who presents to the office today for follow up chronic neck pain. Patient scheduled for Fluoroscopy guided bilateral C4-C5-C6 MBBs with local anesthetic after last visit but he called and cancelled the procedure. He is not ready for injections and would like to continue with conservative treatment at this time. Baclofen 5mg po BID, do not take with flexeril. Patient reports Flexeril causes drowsiness, would like to try something else. Celebrex 50mg po BID as needed. Do not take with other NSAIDs. Order placed for PT eval and treat. TENS unit ordered, patient given pamphlet with instructions for use. All questions and concerns have been answered and patient agrees with the plan. Follow up as needed, patient advised to call if he would like to schedule injections again. Orders: Orders PT Evaluation and Treatment Today M54.2 - Cervicalgia Medications: New celecoxib (Celebrex) do not take with other NSAIDs 50 mg PO BID PRN 60 caps 1RF pain baclofen 5 mg PO BID PRN 30 tabs 0RF muscle spasm Coding Level of Care Code Est Pt Level 3 (52306) Diagnoses Cervicodynia M54.2
[2023-08-10 08:45] VITALS: BP 128/78; PULSE 75; RESP 16; O2SAT 98; BMI 29.2
== END 2023-08-10 09:08 | disposition home or self-care (01) ==
PROVIDERS: PCP Physician Assistant; Visit Provider Registered Nurse Emergency
DX: M54.2 Cervicalgia (principal)
CPT/HCPCS: 99213

== ENCOUNTER → 2023-08-10 08:35 | Outpatient (BNVA) | payer OTHER, SELFPAY | PROVIDERS: PCP Physician Assistant; Visit Provider Registered Nurse Emergency | DX: M54.2 Cervicalgia (principal) | CPT/HCPCS: 99212 ==

== ENCOUNTER 2023-10-03 19:42 | Emergency (ER) | payer OTHER, SELFPAY ==
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
[2023-10-03 20:14] VITALS: BP 142/73; PULSE 78; RESP 17; TEMP 36.8; O2SAT 98; BMI 29.2
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
[2023-10-03] MEDS: Acetaminophen 325 MG TABLET 975 MG PO (20:32)
--- NOTE | 2023-10-03 20:38 | PC.NURSE ---
medication administered per provider order. pt to CT at this time.
[2023-10-03] MEDS: Ondansetron ODT 4 MG TAB.RAPDIS TRANSLINGU (21:02)
[2023-10-03 23:07] VITALS: BP 138/67; PULSE 67; RESP 14; TEMP 36.9; O2SAT 97
== END 2023-10-03 23:13 | disposition home or self-care (01) ==
PROVIDERS: Emergency Provider Emergency Medicine; PCP Physician Assistant
DX: S13.4XXA Sprain of ligaments of cervical spine, initial encounter (principal); S06.0X0A Concussion without loss of consciousness, initial encounter; S40.012A Contusion of left shoulder, initial encounter; R51.9 Headache, unspecified; M54.2 Cervicalgia; V43.52XA Car driver injured in collision with other type car in traffic accident, initial encounter; Y93.9 Activity, unspecified; Y92.410 Unspecified street and highway as the place of occurrence of the external cause; Y99.9 Unspecified external cause status
CPT/HCPCS: 70450; 72125; 73030; 99284

== ENCOUNTER 2023-10-13 09:00 | Outpatient (RCR) | payer OTHER, SELFPAY ==
--- NOTE | 2023-09-01 15:56 | MHC.PT.EP ---
[facility] [place] Office [place] Office [place] Office [address] [phone] F: [phone] F: [phone] F: [phone] F: [phone] Physical Therapy Plan of Care Date of Evaluation: 08/31/23 Date of Surgery: Diagnosis: bilateral neck pain; cervicalgia Hx concussion 2020 Assessment: Patient is a pleasant 23 y.o. male who is referred to PT by MATEO Castro, with Dx of cervicalgia, bilateral neck pain. Pt also with Hx of concussion 2020, presents with some VOR sxs still present. In review Hx of his participation in PT, traction , manual therapy, kinesio-tape and exercises were utilized with some pain relief but when he was discharged in 2020 he persisted with limitations in cervical ROM and occasional dizziness.His sxs are worse on L side, he c/o occasional radicular sxs in UEs that appear postural in nature. Patient impairments include poor posture, limited ROM, pain, intermittent UE radicular sxs, dizziness with saccades and VOR testing. Patient current functional limitations are rotating head to look over shoulders, lifting/carrying at work, difficulty sleeping, reading (lifting up head is painful). Patient will benefit from skilled PT to address aforementioned impairments and functional limitations to meet established goals. Frequency and Duration: The patient will be seen 2x/week for 4 weeks Short Term Goals: 2 weeks Patient demonstrates consistency and independence with HEP to self manage symptoms. Detention Goals: 4 weeks Patient presents with increased cervical rotation AROM 65 degrees bilaterally to look over shoulders when driving. Patient presents with increased cervical side bending 30 degrees bilaterally to improve sleep. Treatment Plan: Modalities to reduce pain, spasms and effusion. Manual therapy to restore motion and function. Therapeutic exercise to improve strength and flexibility. Neuromuscular re-education for posture and balance. Therapeutic activities to return to functional activities of daily living. Electronically signed by: Johnny Dougherty, PT, DPT Please sign and return to therapist. Thank you for your referral.
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
== END 2023-12-01 11:15 | disposition home or self-care (01) ==
LOC: HO.PT 09:00
PROVIDERS: PCP Physician Assistant; Visit Provider Registered Nurse Emergency
DX: M54.2 Cervicalgia (principal)
CPT/HCPCS: 97012; 97014; 97110; 97140; 97162

== ENCOUNTER 2023-11-09 08:21 | Outpatient (AMB) | payer OTHER, SELFPAY ==
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
[2023-11-09 08:35] VITALS: BP 126/78; PULSE 72; O2SAT 99; BMI 29.4
== END 2023-11-09 09:08 | disposition home or self-care (01) ==
PROVIDERS: PCP Physician Assistant; Visit Provider Physician Assistant
DX: M54.2 Cervicalgia (principal); J45.20 Mild intermittent asthma, uncomplicated; G57.61 Lesion of plantar nerve, right lower limb; M79.671 Pain in right foot
CPT/HCPCS: 99214

== ENCOUNTER 2023-12-19 10:05 | Outpatient (REF) | payer OTHER, SELFPAY ==
--- NOTE | ~2023-12-19 | MR_ITS ---
EXAMINATION: MR FOOT WITHOUT CONTRAST, RIGHT CLINICAL INFORMATION: Plantar forefoot pain. Plantar nerve lesion. Concern for Schroeder's neuroma. COMPARISON: Right foot radiographs dated 07/27/2023. TECHNIQUE: Multisequence MR imaging of the right foot was obtained without contrast on a high-field strength scanner. FINDINGS: BONE: No marrow edema. No metatarsal stress reaction or fracture. Small periarticular erosion versus subchondral cystic change at the lateral aspect of the 5th metatarsal head. No associated marrow edema or significant joint effusion. MUSCLES/TENDONS: The visualized flexor and extensor tendons are intact. No edema or evidence of acute injury. LIGAMENTS: Intact Lisfranc ligament. The plantar plates are intact. SOFT TISSUES: Small amount of fluid interposed between the 1st and 2nd as well as the 2nd and 3rd metatarsal heads, which could represent mild adventitial bursitis. No soft tissue mass or evidence of forefoot neuroma. MR/MR foot RT wo con IMPRESSION: 1. Small amount of fluid interposed between the 1st and 2nd as well as the 2nd and 3rd metatarsal heads, which could represent mild adventitial bursitis. 2. No soft tissue mass or evidence of forefoot neuroma. 3. Small periarticular erosion versus subchondral cystic change at the lateral aspect of the 5th metatarsal head. No associated marrow edema or significant joint effusion.
== END 2023-12-19 10:06 | disposition home or self-care (01) ==
LOC: HO.MRI 10:05
PROVIDERS: PCP Physician Assistant; Visit Provider Physician Assistant
DX: M79.671 Pain in right foot (principal); G57.61 Lesion of plantar nerve, right lower limb
CPT/HCPCS: 73718

== ENCOUNTER 2024-02-05 13:47 | Outpatient (AMB) | payer OTHER, SELFPAY ==
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
[2024-02-05 14:04] VITALS: BP 114/72; PULSE 80; O2SAT 97; BMI 28.8
== END 2024-02-05 14:39 | disposition home or self-care (01) ==
LOC: HO.HMGH 13:47
PROVIDERS: PCP Physician Assistant; Visit Provider Physician Assistant
DX: M67.912 Unspecified disorder of synovium and tendon, left shoulder (principal); M54.16 Radiculopathy, lumbar region
CPT/HCPCS: 99214

== ENCOUNTER 2024-07-22 10:07 | Outpatient (AMB) | payer OTHER, SELFPAY ==
--- NOTE | 2024-07-22 10:17 | MHC.PC.OV ---
Vital Signs 07/22/24 10:26 Height 5 ft 9 in Weight 206 lb 4 oz BMI 30.5 BP 124/76 Blood Pressure Location Lt brachial Position Sitting Pulse 92 Pulse Source Pulse Oximeter Pulse Oximetry (%) 98 Oxygen Delivery Method Room Air Intake Visit Reasons: Annual Exam Intake Note: Patient is here today for a physical. 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 .? Patient's past medical history significant for asthma, GERD, cervical spine pain ( work related injury) . Concerns--> patient reports his right wrist has been stiff and has the inability to flex. He denies any notable trauma to his right wrist. He also reports over the last 2 weeks having a dry cough worse at night while lying down. Otherwise denies any productivity of the cough or fevers. He also is interested in a rheumatology workup as he has a long history of joint pains at a young age. Asthma: Has been controlled with as needed use of albuterol inhaler. VAccine: Considering COVID vac, Declines flu.? UTD Tdap. ? PFSH Medical History Armpit abscess Armpit abscess Asthma Family History Mother Diabetes Heart problem CAD (coronary artery disease) Father High blood pressure Asthma Mental health disorder Brother ESRD (end stage renal disease) on dialysis Social History (Updated 07/22/24 @ 10:49 by Nash Simons PA-C) Housing: Apartment Alcohol intake: never Patient Tobacco Use Status: Never used Tobacco e-Cigarette/Vaping Use: Never Used Second Hand Smoke Exposure: No service: No Current occupational status: unemployed Cognitive needs: No Hearing needs: No Vision needs: No Questionnaire PHQ-9 Over the last 2 weeks, how often have you been bothered by any of the following problems? 1. Little interest or pleasure in doing things: not at all 2. Feeling down, depressed, or hopeless: several days 3. Trouble falling or staying asleep, or sleeping too much: not at all 4. Feeling tired or having little energy: several days 5. Poor appetite or overeating: not at all 6. Feeling bad about yourself - or that you are a failure or have let yourself or your family down: not at all 7. Trouble concentrating on things, such as reading the newspaper or watching television: not at all 8. Moving or speaking so slowly that other people could have noticed. Or the opposite - being so fidgety or restless that you have been moving around a lot more than usual: not at all 9. Thoughts that you would be better off or of hurting yourself in some way: not at all Total score: 2 Depression Screening Interpretation: Positive Depression Screening Follow-up: Existing condition Depression Screening Done: Yes 24929 - PHQ-9 Billing: Yes Source: Developed by Drs. Vinnie Drake, Genny James, Ramez Ledezma and colleagues, with an educational kasi from [employer]. Thrive Questionnaire Date Thrive assessed: 07/22/24 I am a: Patient What is your living situation today?: I have a steady place to live Within the past 12 months, did the food you bought not last and you didn't have the money to get more?: Sometimes True Within the past 12 months, did you worry whether your food would run out before you got money to buy more?: Sometimes True Do you have trouble paying for medicines?: No Do you have trouble getting transportation to medical appointments?: No Do you have trouble paying your heating and electricity bill?: No Do you have trouble taking care of your child, family member or friend?: No Do you have trouble with day-to-day activities such as bathing, preparing meals, shopping, managing finances, etc.?: No Are you currently unemployed and looking for a job?: Yes Are you interested in more education?: No Please select the resources that you would like help with: Housing/[facility] Currently or been in a relationship where the following occur: No concerns reported THRIVE Score: 2 AUDIT C Alcohol Use Questionnaire (AUDIT-C) 1. How often do you have a drink containing alcohol?: Never 3. How often do you have six or more drinks on one occasion?: Never Total Score: 0 KISHORE-7 AMB Questionnaire KISHORE-7 Date KISHORE - 7 assessed: 07/22/24 Feeling nervous, anxious, or on edge: 1 = Several days Not being able to stop or control worryin = Several days Worrying too much about different things: 1 = Several days Trouble relaxin = Several days Being so restless that it is hard to sit still: 1 = Several days Becoming easily annoyed or irritable: 1 = Several days Feeling afraid as if something awful might happen: 0 = Not at all Total KISHORE-7 score (0-4 normal; 5-9 mild; 10-14 moderate; 15-21 severe): 6 Source: Developed by Drs. Vinnie Drake, Genny James, Ramez Ledezma and colleagues, with an educational kasi from [employer]. KISHORE-7 Assessment Billing KISHORE-7 Assessment Tool: KISHORE-7 Assessment 81655 ACT Questionnaire In the past 4 weeks, how much of the time did your asthma keep you from getting as much done at work, school or at home?: None of the time During the past 4 weeks, how often have you had shortness of breath?: Not at all During the past 4 weeks, how often did your asthma symptoms wake you up at night or earlier than usual in the morning?: Not at all During the past 4 weeks, how often have you had to use your rescue inhaler or nebulizer medication?: Once a week or less How would you rate your asthma control during the past 4 weeks?: Completely controlled ACT Interpretation: Negative Score: 24 Review of Systems Const Denies body aches, Denies chills, Denies excessive sweating, Denies fatigue, Denies fever(s) and Denies headache(s) Eyes Denies blurry vision ENT Denies dysphagia, Denies vertigo, Denies dizziness, Denies headache(s), Denies hearing loss and Denies tinnitus Card Denies chest pain, Denies chest pain with activity, Denies syncope, Denies irregular heart rhythm and Denies dyspnea Resp Denies chest congestion, Reports cough, Denies hemoptysis, Denies dyspnea and Denies wheezing GI Denies abdominal pain, Denies melena, Denies hematochezia, Denies coffee ground emesis, Denies dysphagia, Denies diarrhea, Denies nausea and Denies vomiting Denies difficulty urinating, Denies dysuria, Denies urinary frequency, Denies urinary hesitancy and Denies urinary urgency Musc Denies arthralgias, Denies limited range of motion, Denies muscle cramps and Denies muscle weakness Skin/Breast Denies rash and Denies skin ulcer Neuro Denies Abnormal speech present, Denies confusion, Denies vertigo, Denies dizziness, Denies syncope, Denies headache(s), Denies memory loss and Denies seizure-like activity Psych Denies anxiety, Denies confusion, Denies depression, Denies memory loss, Denies panic attacks and Denies paranoia Endo Denies excessive sweating, Denies fatigue, Denies flushing, Denies polydipsia and Denies polyuria Aller/Immun Denies wheezing Physical exam (Primary Care) Vital Signs: Last Vital Signs Pulse 92 07/22/24 10:26 BP 124/76 07/22/24 10:26 Pulse Ox 98 07/22/24 10:26 Oxygen Delivery Method Room Air 07/22/24 10:26 BMI result Body Mass Index 30.5 Tobacco/Smoking Status: Tobacco use Status Tobacco use date assessed 11/09/23 07/22/24 10:19 Patient Tobacco Use Status Never used Tobacco 07/22/24 10:49 e-Cigarette/Vaping Use Never Used 07/22/24 10:49 PHQ-9: PHQ-9 Score PHQ-9: Total score 2 07/22/24 10:51 Depression Screening Interpretation: Positive Depression Screening Follow-up: Existing condition Thrive Assessment: Date of Thrive Assessment Date Thrive assessed 07/22/24 07/22/24 10:19 Currently or been in a relationship where the following occur: No concerns reported Const General: cooperative, comfortable, no acute distress, alert and awake; No confusion Orientation/consciousness: oriented to person, oriented to place, patient oriented x3 and No confusion HENMT Head: Yes normocephalic Ears: external ears normal and TM's normal bilaterally Face and sinus: No sinus tenderness Mouth: Normal oral and palatal mucosa present and tongue normal Teeth and gingiva: dentition normal and gingiva normal Throat: Yes posterior oropharynx normal, Yes tonsils normal and Yes uvula midline Eyes Conjunctivae: conjunctivae normal Sclerae: sclerae normal Pupils: Equal, round and reactive pupils present EOM: EOMs intact bilaterally Direct Ophthalmoscopy: No no photophobia Neck Neck: Yes no lymphadenopathy, No tender and Yes no JVD Thyroid: Thyroid normal Carotids: no bruits Chest Chest palpation & inspection: no tenderness Resp Effort & Inspection: normal respiratory effort, no audible wheezes, not labored and no stridor Auscultation: no crackles, no rales, no rhonchi and no wheezes Cardio Jugular venous distension: no JVD Rate: regular rate, not bradycardic and not tachycardic Rhythm: regular rhythm Bruits: no carotid bruits Peripheral pulses: Peripheral pulses 2+ throughout GI Inspection: Yes normal to inspection, No abdominal wall ecchymosis and No visible herniation Palpation (GI): Soft to palpation, nontender, no guarding, not rigid and No hepatosplenomegaly present Auscultation: normoactive bowel sounds General: Yes no CVA tenderness Back/Spine/Pelvis Back: no CVA tenderness and No back tenderness Cervical Spine: cervical ROM normal Thoracic/Lumbar Spine: thoracic and lumbar spine normal to inspection, straight leg raise negative bilaterally, No thoraco-lumbar ROM limited and No lumbar spinal tenderness Skin Lesions: no lesions Rashes: no rashes Wounds: no wounds Neuro General: oriented to person, oriented to place, patient oriented x3, CN's II-XI intact bilaterally and No confusion Cranial nerves: Yes Equal, round and reactive pupils present and Yes Normal accommodation reflex present Cognition (Neuro): normal cognition Speech: No Abnormal speech present Gait exam (Neuro): Normal gait present Motor exam (neuro): 5/5 motor strength present throughout Extrem Right upper extremity: full ROM; no cyanosis Left upper extremity: full ROM; no cyanosis Right lower extremity: no edema Left lower extremity: no edema Psych Appearance: grossly normal Mental Status: mental status grossly normal Affect: normal affect Attitude: cooperative Thought process: Normal thought process present Coding Level of Care Code Est Pt Prev Care 18-39y(23804) Diagnoses Annual physical exam Z00.00 Mild intermittent asthma without complication J45.20 Asthma complication type: uncomplicated Asthma persistence: intermittent Asthma severity: mild Arthralgia of right wrist M25.531 Laterality: right Polyarthralgia M25.50 Additional Codes KISHORE-7 Assessment Billing - KISHORE-7 Assessment Tool: KISHORE-7 Assessment 58150 ([id number]) Assessment & Plan Assessment & Plan (1) Annual physical exam: Code(s): Z00.00 - Encounter for general adult medical examination without abnormal findings Category: Medical Plan: As per HPI (2) Asthma: Code(s): J45.909 - Unspecified asthma, uncomplicated Category: Medical Qualifiers: Asthma complication type: uncomplicated Asthma persistence: intermittent Asthma severity: mild Qualified Code(s): J45.20 - Mild intermittent asthma, uncomplicated Plan: Patient reports his asthma has been well controlled with only p.r.n. use of his albuterol inhaler. He denies any nighttime awakenings with asthma symptoms or recent asthma exacerbations. (3) Wrist arthralgia: Code(s): M25.539 - Pain in unspecified wrist Category: Medical Qualifiers: Laterality: right Qualified Code(s): M25.531 - Pain in right wrist Plan: Patient is noted right wrist stiffness over the last several weeks. He denies any acute trauma to his right wrist. Will send for x-ray of his wrist to evaluate the bone structures. We did discuss occupational therapy though would like to see hand and wrist surgeon for evaluation (4) Polyarthralgia: Code(s): M25.50 - Pain in unspecified joint Category: Medical Plan: As per HPI will workup for a rheumatology issue due to patient's joint pains at early age. Orders: Orders XR chest 2V 07/22/24 J45.20 - Mild intermittent asthma, uncomplicated BIRDIE Reflex Titer and Pattern 07/22/24 M25.50 - Pain in unspecified joint Cyclic Citrullinated Peptide 07/22/24 M25.50 - Pain in unspecified joint Erythrocyte Sedimentation Rate 07/22/24 M25.50 - Pain in unspecified joint XR wrist RT 2V 07/22/24 M25.531 - Pain in right wrist OT Evaluation and Treatment 07/22/24 M25.531 - Pain in right wrist Comprehensive Gormania. Panel Fast 07/22/24 Z13.1 - Encounter for screening for diabetes mellitus Complete Blood Count no Diff 07/22/24 Z13.1 - Encounter for screening for diabetes mellitus Lyme IgG/IgM w/reflex to WB 07/22/24 M25.50 - Pain in unspecified joint DNA Double Stranded-Crithidia 07/22/24 M25.50 - Pain in unspecified joint Referrals Orthopedics Referral M25.531 - Pain in right wrist Medications: New benzonatate 200 mg PO TID 15 caps 0RF 5 days J45.20 - Mild intermittent asthma, uncomplicated, R05.9 - Cough, unspecified Refilled albuterol sulfate 90 mcg/actuation (Proventil HFA) 1 inh inhalation QID 30 days PRN 8.5 grams 3RF shortness of breath or wheezing J45.20 - Mild intermittent asthma, uncomplicated albuterol sulfate 90 mcg/actuation (Proventil HFA) 1 inh inhalation QID PRN 8.5 grams 3RF shortness of breath or wheezing 30 days J45.20 - Mild intermittent asthma, uncomplicated
[2024-07-22 10:26] VITALS: BP 124/76; PULSE 92; O2SAT 98; BMI 30.5
== END 2024-07-22 10:58 | disposition home or self-care (01) ==
PROVIDERS: PCP Physician Assistant; Visit Provider Physician Assistant
DX: Z00.00 Encounter for general adult medical examination without abnormal findings (principal); J45.20 Mild intermittent asthma, uncomplicated; M25.531 Pain in right wrist; M25.50 Pain in unspecified joint

== ENCOUNTER → 2024-07-22 10:07 | Outpatient (BNVA) | payer SELFPAY | PROVIDERS: PCP Physician Assistant; Visit Provider Physician Assistant | DX: Z00.01 Encounter for general adult medical examination with abnormal findings (principal); J45.20 Mild intermittent asthma, uncomplicated; M25.531 Pain in right wrist | CPT/HCPCS: 96127; 96160; 99395 ==

== ENCOUNTER 2024-07-26 10:09 | Outpatient (REF) | payer OTHER, SELFPAY ==
--- NOTE | ~2024-07-26 | XR_ITS ---
EXAMINATION: XR WRIST, RIGHT CLINICAL INFORMATION: Wrist pain COMPARISON: None available. TECHNIQUE: PA, lateral, and oblique views of the right wrist. FINDINGS: The bones and soft tissues are normal. No fracture. Alignment is anatomic with normal joint spaces. No erosions or abnormal soft tissue calcifications. XR/XR wrist RT 2V IMPRESSION: Unremarkable plain radiographs of the right wrist. Electronically signed by: Brian Coleman MD 07/28/2024 06:45 PM EDT
--- NOTE | ~2024-07-26 | XR_ITS ---
EXAMINATION: XR CHEST 2 VIEW CLINICAL INFORMATION: Intermittent asthma, mild COMPARISON: None TECHNIQUE: PA and lateral views of the chest obtained. FINDINGS: The lungs are clear. There are no pleural effusions. The cardiomediastinal silhouette is normal. XR/XR chest 2V IMPRESSION: No acute cardiopulmonary disease. Electronically signed by: Brian Coleman MD 07/28/2024 06:44 PM EDT RP
== END 2024-07-26 10:10 | disposition home or self-care (01) ==
LOC: HO.XRAY 10:09
PROVIDERS: Visit Provider Physician Assistant
DX: M25.531 Pain in right wrist (principal); J45.20 Mild intermittent asthma, uncomplicated
CPT/HCPCS: 71046; 73100

== ENCOUNTER 2024-08-26 14:07 | Outpatient (AMB) | payer OTHER, SELFPAY ==
--- NOTE | 2024-08-26 14:15 | A.OFFVIS_ITS ---
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 No hx of Injury. Hx of fx when he was 8. Patient reports ongoing pain for 5 months and he also stiffness. His pain is worse when he is squeezing, gripping and lifting heavy items. Denies numbness and tingling in his fingers. 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 Ivory is a 24 year old right hand dominant male who presents today as a new patient with complaints of right wrist pain. No hx of Injury. Hx of wrist fx when he was 8, denies surgical fixation. Patient reports ongoing pain for 5 months and he also stiffness. His pain is worse when he is squeezing, gripping and lifting heavy items. Denies numbness and tingling in his fingers. PFSH Medical History Armpit abscess Armpit abscess Asthma Family History Mother Diabetes Heart problem CAD (coronary artery disease) Father High blood pressure Asthma Mental health disorder Brother ESRD (end stage renal disease) on dialysis Social History (Updated 08/26/24 @ 14:20 by Luiza Ross) Housing: Apartment Alcohol intake: never Patient Tobacco Use Status: Never used Tobacco e-Cigarette/Vaping Use: Never Used Second Hand Smoke Exposure: No service: No Current occupational status: unemployed Current occupation: right hand dominant Cognitive needs: No Hearing needs: No Vision needs: No Physical Exam Extrem Other: Right wrist and hand normal to inspection. No ecchymosis, erythema or edema. Very limited ROM with wrist flexion and extension. Able to perform full finger extenison, flexion, abduction, adduction, finger cross and thumbs up with no deficits. Sensation intact. Capillary refill is brisk. 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 Ivory is a 24 year old right hand dominant male who presents today as a new patient with complaints of right wrist pain. No hx of Injury. Hx of wrist fx when he was 8, denies surgical fixation. Patient reports ongoing pain for 5 months and he also stiffness. His pain is worse when he is squeezing, gripping and lifting heavy items. Denies numbness and tingling in his fingers. X-rays obtained on 07/25/24 were reviewed and negative for any acute fracture or dislocation. There is some joint space narrowing at the distal radius. Patient reports that he occasionally uses a velcro wrist splint for pain relif. I have recommended discontinuing any ROM restricting devices. I placed a referral to rheumatology due to multiple other polyarthralgias he explains. In addition, I have placed a referral to physical therapy to work in ROM. He will f/u in 6 weeks, sooner if needed. Orders: Referrals Rheumatology Referral M19.031 - Primary osteoarthritis, right wrist Coding Level of Care Code New Pt Level 4 (08980) Diagnoses Arthralgia of right wrist M25.531 Laterality: right Arthritis of right wrist M19.031
== END 2024-08-26 14:35 | disposition home or self-care (01) ==
PROVIDERS: PCP Physician Assistant; Visit Provider Physician Assistant
DX: M25.531 Pain in right wrist (principal); M19.031 Primary osteoarthritis, right wrist
CPT/HCPCS: 99204

== ENCOUNTER → 2024-08-26 14:07 | Outpatient (BNVA) | payer OTHER, SELFPAY | PROVIDERS: PCP Physician Assistant | DX: M25.531 Pain in right wrist (principal); M19.031 Primary osteoarthritis, right wrist | CPT/HCPCS: 99202 ==

== ENCOUNTER 2024-08-29 12:39 | Outpatient (REF) | payer OTHER, SELFPAY ==
[2024-08-29 13:48] LABS: Hematocrit 48.5 % (42.0-52.0); Hemoglobin 16.9 g/dl (14.0-18.0); Mean Corpuscular HGB Conc 34.8 g/dl (31.0-36.0); Mean Corpuscular Hemoglobin 28.9 pg (27.0-33.0); Mean Platelet Volume 9.1 fL (9.4-12.4); Platelet Count 187 X10*3/uL (160-400); Red Blood Count 5.84 X10*6/uL (4.60-5.80); Red Cell Distribution Width 12.4 % (11.0-16.0); White Blood Count 7.8 X10*3/uL (4.8-10.8)
[2024-08-29 14:23] LABS: Erythrocyte Sedimentation Rate 2 MM/HR (0-15)
[2024-08-29 15:55] LABS: Alanine Aminotransferase 71 U/L (0-40); Albumin Level 4.6 g/dL (3.5-5.0); Alkaline Phosphatase 148 U/L (39-117); Anion Gap 12 (12-20); Aspartate Amino Transferase 32 U/L (5-37); Bilirubin Total 0.4 mg/dL (0.0-1.0); Blood Urea Nitrogen 13 mg/dL (9-16); Calcium 9.2 mg/dL (8.4-10.2); Carbon Dioxide 27 mmol/L (22-29); Chloride 104 mmol/L (96-108); Estimated Glomerular Filt Rate > 60; Glucose Fasting 90 mg/dL (60-99); Potassium 3.9 mmol/L (3.3-5.1); Sodium 139 mmol/L (135-145); Total Protein 7.4 g/dL (6.5-8.0)
[2024-08-31 06:29] LABS: Lyme Abs Screen <0.90 index
[2024-09-02 13:43] LABS: Anti Nuclear Antibody Screen NEGATIVE (NEGATIVE)
[2024-09-02 21:43] LABS: Cyclic Citrullinated Peptide >250 UNITS
[2024-09-05 16:04] LABS: DNAds, Crithidia Antibody Negative (Negative)
== END 2024-08-29 12:40 | disposition home or self-care (01) ==
LOC: HO.LAB 12:39
PROVIDERS: PCP Physician Assistant; Visit Provider Physician Assistant
DX: M25.50 Pain in unspecified joint (principal); Z13.1 Encounter for screening for diabetes mellitus
CPT/HCPCS: 36415; 80053; 85027; 85652; 86038; 86200; 86255; 86617; 86618

== ENCOUNTER 2024-10-15 12:38 | Outpatient (AMB) | payer OTHER, SELFPAY ==
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
[2024-10-15 13:25] VITALS: BMI 30.5
== END 2024-10-15 14:00 | disposition home or self-care (01) ==
PROVIDERS: PCP Physician Assistant; Visit Provider Orthopaedic Surgery
DX: M25.631 Stiffness of right wrist, not elsewhere classified (principal); M25.531 Pain in right wrist
CPT/HCPCS: 99214

== ENCOUNTER → 2024-10-15 12:38 | Outpatient (BNVA) | payer OTHER, SELFPAY | PROVIDERS: PCP Physician Assistant; Visit Provider Orthopaedic Surgery | DX: M25.631 Stiffness of right wrist, not elsewhere classified (principal); M25.531 Pain in right wrist | CPT/HCPCS: 99212 ==

== ENCOUNTER → 2024-11-08 07:54 | Outpatient (BNV) | payer OTHER, SELFPAY | PROVIDERS: PCP Physician Assistant; Visit Provider Specialist | DX: S63.8X1A Sprain of other part of right wrist and hand, initial encounter (principal); M25.431 Effusion, right wrist | CPT/HCPCS: 73221 ==

== ENCOUNTER 2024-11-08 08:04 | Outpatient (REF) | payer OTHER, SELFPAY ==
--- NOTE | ~2024-11-08 | MR_ITS ---
CLINICAL HISTORY: M25.531 - Pain in right wrist MR right wrist without gadolinium Comparison: 07/26/2024 Findings: No acute fractures. No pathologic bone lesions. There is proximal and mid carpal row effusions and fluid in the distal radioulnar articulation. There is loss of joint space in the radiocarpal articulation with subchondral lunate and distal radial changes, possible developing osteoarthritis. There is a focal defect in the proximal portion of the scapholunate ligament suggesting a partial tear. No lunotriquetral ligament tears. Flexor and extensor tendons are intact. Intact triangular fibrocartilage complex. The flexor retinaculum is intact. Intact median and ulnar nerves. IMPRESSION: 1. Partial scapholunate ligament tear with radiocarpal and midcarpal space effusions. 2. Findings possibly related to previous injury with radiocarpal space loss and developing osteoarthritis. This document has been electronically signed by: Brian Dooley MD on 11/09/2024 08:23:35
== END 2024-11-08 08:05 | disposition home or self-care (01) ==
LOC: HO.MRI 08:04
PROVIDERS: PCP Physician Assistant; Visit Provider Orthopaedic Surgery
DX: M25.531 Pain in right wrist (principal)
CPT/HCPCS: 73221

== ENCOUNTER 2024-11-15 10:45 | Outpatient (RCR) | payer OTHER, SELFPAY ==
--- NOTE | 2024-09-11 09:10 | MHC.OT.EP ---
[address] [phone] Occupational Therapy Plan of Care Patient Name: Familia Ivory Date of Evaluation: 09/11/24 Diagnosis: Wrist Arthralgia Pain Location: Sharp, ache through right wrist if using or hits on something Low pain at rest Pain Score: 8 Pain Scale Used: Numeric (0 - 10) Aggravating Factors: Bumps it, heavy use Alleviating Factors: Avoiding pain meds, heat packs Assessment: 24 yo male presents w/ hx of right wrist pain and stiffness, was seen in [facility] and no acute injury identified, he did have wrist fracture in his childhood. Recommendation was to discharge velcro splint (that he has been wearing for comfort) and normalize function. He has also been seen recently diagnosed w/ RA. 07/26/24 x-Ray (-) for acute changes. On assessment today, no significant edema noted and good digit range of motion, but significant limitations in rotation (55/50), flex (0 degrees) and ext (30) and very tender to palpate wrist into forearm, volarly and dorsaly. Forearm musculature is very tight and exam is somewhat limited at this time (for testing instability) but I anticipate he will do well w/ course of therapy to normalize movement and use. 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 Thank you once again for your referral.
== END 2024-11-15 11:30 | disposition home or self-care (01) ==
LOC: HO.OT 10:45
PROVIDERS: PCP Physician Assistant; Visit Provider Physician Assistant
DX: M25.531 Pain in right wrist (principal)
CPT/HCPCS: 29125; 97110; 97112; 97140; 97165; 97530; 97760

== ENCOUNTER 2024-11-27 12:19 | Outpatient (AMB) | payer OTHER, SELFPAY ==
[2024-11-27 12:22] VITALS: BMI 30.5
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
--- OUTSIDE RECORDS SUMMARY | 2024-11-27 13:50 | XMS_ITS | Clinical Summary ---
Author Organization [facility] Address [address] [place] [id number] Phone Care Team Providers Care Nc Manager Name Role Phone Greg Carson MD Primary Care Provider [phone] Immunizations Immunization Administration Dates Next Due DTaP 5 04/10/2003, 1,1998, 998,1998 Hep B, ped/adol 1998,1998,1998 Hib (PRP-T) 05/24/1999, 8,1998, 998 IPV 04/10/2003,199 8,1998, 998 MMR 04/10/2003,05/24/1999 Meningococcal Conj (Menactra) MCV4P 01/30/2015,0 07/14/2010 Tdap 07/14/2010 Varicella 08/16/2000 Social History Tobacco Use Types Packs/Day Years Used Date Smoking Tobacco: Never Comments:Never Smoker Sex and Gender Information Value Date Recorded Sex Assigned at Not on file Legal Sex Male 6:26 PM EDT Gender Identity Not on file Sexual Orientation Not on file Last Filed Vital Signs Vital Sign Reading Time Taken Comments Blood Pressure - - Pulse 60 06/16/2016 2:56 PM EDT Temperature 36.9 ??C (98.4 ??F) 05/17/2017 11:26 AM E DT Respiratory Rate - - Oxygen Saturation - - Inhaled Oxygen Concentration - - Weight 79.8 kg (176 lb) 05/17/2017 11:26 AM EDT Height 173.4 cm (5' 8.25 ) 05/17/2017 11:26 AM E DT Body Mass Index 26.57 05/17/2017 11:26 AM EDT Plan of Treatment Health Maintenance Due Date Last Done Comments Varicella Vaccines (2 of 2 - 2-dose childhood series) 05/08/2003 08/16/2000 HPV Vaccines (1 - Male 3-dose series) 2013 DTaP,Tdap,and Td Vaccines (7 - Td or Tdap) 07/14/2020 07/14/2010, 04/10/2003, 10/27/2000, Additional history exists Influenza Vaccines (#1) 2024 COVID-19 Vaccine ( - season) 2024 Hepatitis B Vaccines Completed 1998, 1998, 1998 HIB Vaccines Completed 05/24/1999, 11/1997, 1998, Additional history exists IPV Vaccines Completed 04/10/2003, 11/1997, 1998, Additional history exists MMR Vaccines Completed 04/10/2003, 05/24/1999 Meningococcal Vaccine Completed 01/30/2015, 010 Hepatitis A Vaccines Aged Out No long er eligible based on patient's age to complete this topic Men B Vaccine Aged Out No longer elig ible based on patient's age to complete this topic Pneumococcal Vaccine Aged Out No long er eligible based on patient's age to complete this topic Care Teams Nc Manager Relationship Specialty Start Date End Date Greg Carson MD [facility] [facility] [place] [address] PCP - General 02/21/18
--- OUTSIDE RECORDS SUMMARY | 2024-11-27 13:50 | XMS_ITS | Encounter Summary ---
Author Organization [facility] Address [address] [place] [phone] Phone Care Team Providers Care Bender Machine Operator Name Role Phone Greg Carson MD Primary Care Provider [phone] Encounter Details Date Type Department Care Team (Late st Contact Info) Description 11/04/2011 Conversion Encounter [facility] [address] [place] [address] Social History Tobacco Use Types Packs/Day Years Used Date Smoking Tobacco: Never Assessed Sex and Gender Information Value Date Recorded Sex Assigned at Not on file Legal Sex Male 6:26 PM EDT Gender Identity Not on file Sexual Orientation Not on file documented as of this encounter Plan of Treatment Not on file documented as of this encounter Visit Diagnoses Not on filedocumented in this encounter Care Teams Bender Machine Operator Relationship Specialty Start Date End Date Greg Carson MD [address] [place] [address] PCP - General 02/21/18 documented as of this encounter
== END 2024-11-27 13:08 | disposition home or self-care (01) ==
PROVIDERS: PCP Physician Assistant; Visit Provider Orthopaedic Surgery
DX: M25.631 Stiffness of right wrist, not elsewhere classified (principal); M25.531 Pain in right wrist; S63.8X1A Sprain of other part of right wrist and hand, initial encounter; M19.031 Primary osteoarthritis, right wrist; M25.50 Pain in unspecified joint
CPT/HCPCS: 99214

== ENCOUNTER → 2024-11-27 12:19 | Outpatient (BNVA) | payer OTHER, SELFPAY | PROVIDERS: PCP Physician Assistant; Visit Provider Orthopaedic Surgery | DX: S63.8X1D Sprain of other part of right wrist and hand, subsequent encounter (principal); M25.631 Stiffness of right wrist, not elsewhere classified; M25.531 Pain in right wrist; M19.031 Primary osteoarthritis, right wrist; M25.50 Pain in unspecified joint | CPT/HCPCS: 99212 ==

== ENCOUNTER 2025-01-07 10:11 | Outpatient (AMB) | payer OTHER, SELFPAY ==
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
[2025-01-07 10:12] VITALS: BP 118/78; PULSE 89; O2SAT 96; BMI 31.7
== END 2025-01-07 11:14 | disposition home or self-care (01) ==
LOC: HO.RHE 10:11
PROVIDERS: PCP Physician Assistant; Visit Provider Student in an Organized Health Care Education/Training Program
DX: M05.79 Rheumatoid arthritis with rheumatoid factor of multiple sites without organ or systems involvement (principal); Z51.81 Encounter for therapeutic drug level monitoring; Z79.631 Long term (current) use of antimetabolite agent
CPT/HCPCS: 99205; G2211

== ENCOUNTER → 2025-01-07 10:11 | Outpatient (BNVA) | payer OTHER, SELFPAY | PROVIDERS: PCP Physician Assistant; Visit Provider Student in an Organized Health Care Education/Training Program | DX: M05.9 Rheumatoid arthritis with rheumatoid factor, unspecified (principal); Z51.81 Encounter for therapeutic drug level monitoring; Z79.631 Long term (current) use of antimetabolite agent | CPT/HCPCS: 99202 ==

== ENCOUNTER 2025-01-29 11:07 | Outpatient (AMB) | payer OTHER, SELFPAY ==
[2025-01-29 11:21] VITALS: BMI 31.6
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
--- OUTSIDE RECORDS SUMMARY | 2025-01-29 13:20 | XMS_ITS | Clinical Summary ---
Author Organization [facility] Address [address] [place] [id number] Phone Care Team Providers Care Airplane Patrol Pilot Name Role Phone Greg Carson MD Primary Care Provider [phone] Immunizations Immunization Administration Dates Next Due DTaP 5 04/10/2003, 1,1998, 998,1998 Hep B, ped/adol 1998,1998,1998 Hib (PRP-T) 05/24/1999,199 8,1998, 998 IPV 04/10/2003,199 8,1998, 998 MMR [...] 2 - 2-dose childhood series) 05/08/2003 08/16/2000 DTaP,Tdap,and Td Vaccines (7 - Td or Tdap) 07/14/2020 07/14/2010, 04/10/2003, 10/27/2000, Additional history exists Influenza Vaccines (#1) 2024 COVID-19 Vaccine ( season) 2024 Hepatitis B Vaccines Completed 1998, 1998, 1998 HIB Vaccines Completed 05/24/1999, 11/1997, 1998, Additional history exists IPV Vaccines Completed 04/10/2003, 11/1997, 1998, Additional history exists MMR Vaccines Completed 04/10/2003, 05/24/1999 Meningococcal Vaccine Completed 01/30/2015, 010 HPV Vaccines Aged Out No longer eligi ble based on patient's age to complete this topic Hepatitis A Vaccines Aged Out No long er eligible based on patient's age to complete this topic Men B Vaccine Aged Out No longer elig ible based on patient's age to complete this topic Pneumococcal Vaccine Aged Out No long er eligible based on patient's age to complete this topic Care Teams Airplane Patrol Pilot Relationship Specialty Start Date End Date Greg Carson MD [facility] [facility] [place] [address] PCP - General 02/21/18
--- OUTSIDE RECORDS SUMMARY | 2025-01-29 13:20 | XMS_ITS | Encounter Summary ---
Author Organization [facility] Address [address] [place] [id number] Phone Care Team Providers Care Dye Winch Operator Name Role Phone Greg Carson MD Primary Care Provider [phone] Encounter Details Date Type Department Care Team (Late st Contact Info) Description 11/04/2011 Conversion Encounter [facility] [address] [place] [address] Social History Tobacco Use Types Packs/Day Years [...] on filedocumented in this encounter Care Teams Dye Winch Operator Relationship Specialty Start Date End Date Greg Carson MD [address] [place] [address] PCP - General 02/21/18 documented as of this encounter
== END 2025-01-29 12:13 | disposition home or self-care (01) ==
LOC: HO.HOS 11:07
PROVIDERS: PCP Physician Assistant; Visit Provider Orthopaedic Surgery
DX: M19.031 Primary osteoarthritis, right wrist (principal); M25.631 Stiffness of right wrist, not elsewhere classified; M05.9 Rheumatoid arthritis with rheumatoid factor, unspecified; S63.8X1A Sprain of other part of right wrist and hand, initial encounter; M25.50 Pain in unspecified joint
CPT/HCPCS: 99213

== ENCOUNTER → 2025-01-29 11:07 | Outpatient (BNVA) | payer OTHER, SELFPAY | PROVIDERS: PCP Physician Assistant; Visit Provider Orthopaedic Surgery | DX: M19.031 Primary osteoarthritis, right wrist (principal); M25.631 Stiffness of right wrist, not elsewhere classified; M05.9 Rheumatoid arthritis with rheumatoid factor, unspecified; S63.8X1A Sprain of other part of right wrist and hand, initial encounter; X58.XXXA Exposure to other specified factors, initial encounter; Y93.9 Activity, unspecified; Y92.9 Unspecified place or not applicable; Y99.9 Unspecified external cause status | CPT/HCPCS: 99212 ==

== ENCOUNTER 2025-02-25 08:25 | Outpatient (REF) | payer OTHER, SELFPAY ==
--- NOTE | ~2025-02-25 | XR_ITS ---
EXAMINATION: XR SHOULDER, LEFT CLINICAL INFORMATION: M25.519 - Pain in unspecified shoulder COMPARISON: October 03, 2023. TECHNIQUE: AP external rotation, Grashey, scapular Y, and axillary views of the left shoulder. FINDINGS: No acute cortical disruption or malalignment. No lytic or blastic lesions. Preservation of normal joint spaces. No subchondral cyst formation. XR/XR shoulder LT min 2V IMPRESSION: Normal left shoulder x-ray. Negative exam. Electronically signed by: Bg Monique MD 02/25/2025 11:44 AM EDT
--- OUTSIDE RECORDS SUMMARY | 2025-02-26 08:39 | XMS_ITS | Clinical Summary ---
Author Organization [facility] Address [address] [place] [address] Phone Care Team Providers Care Military Equipment Specialist Name Role Phone Greg Carson MD Primary Care Provider [phone] Immunizations Immunization Administration Dates Next Due DTaP [...] age to complete this topic Care Teams Military Equipment Specialist Relationship Specialty Start Date End Date Greg Carson MD [facility] [facility] [place] [address] PCP - General 02/21/18
--- OUTSIDE RECORDS SUMMARY | 2025-02-26 08:39 | XMS_ITS | Encounter Summary ---
Author Organization [facility] Address [address] [place] [address] Phone Care Team Providers Care Hedis Manager Name Role Phone Greg Carson MD Primary Care Provider [phone] Encounter Details Date Type Department Care Team (Late st Contact Info) Description 11/04/2011 Conversion Encounter [facility] [address] [facility] [place] [address] Social History Tobacco Use Types Packs/Day Years [...] on filedocumented in this encounter Care Teams Hedis Manager Relationship Specialty Start Date End Date Greg Carson MD [address] [facility] [place] [address] PCP - General 02/21/18 documented as of this encounter
== END 2025-02-25 08:26 | disposition home or self-care (01) ==
LOC: HO.HOSX 08:25
PROVIDERS: Visit Provider Physician Assistant
DX: M25.512 Pain in left shoulder (principal); M75.102 Unspecified rotator cuff tear or rupture of left shoulder, not specified as traumatic
CPT/HCPCS: 73030; 99212

== ENCOUNTER 2025-02-25 11:20 | Outpatient (AMB) | payer OTHER, SELFPAY ==
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
--- OUTSIDE RECORDS SUMMARY | 2025-02-25 12:48 | XMS_ITS | Clinical Summary ---
Author Organization [facility] Address [address] [place] [address] Phone Care Team Providers Care Construction Recruiter Name Role Phone Greg Carson MD Primary Care Provider [phone] Immunizations Immunization Administration Dates Next Due DTaP [...] age to complete this topic Care Teams Construction Recruiter Relationship Specialty Start Date End Date Greg Carson MD [facility] [facility] [place] [address] PCP - General 02/21/18
--- OUTSIDE RECORDS SUMMARY | 2025-02-25 12:48 | XMS_ITS | Encounter Summary ---
Author Organization [facility] Address [address] [place] [address] Phone Care Team Providers Care Poultry Dresser Name Role Phone Greg Carson MD Primary Care Provider [phone] Encounter Details Date Type Department Care Team (Late st Contact Info) Description 11/04/2011 Conversion Encounter [facility] [address] [facility] [place] [address] Social History Tobacco Use Types Packs/Day Years [...] on filedocumented in this encounter Care Teams Poultry Dresser Relationship Specialty Start Date End Date Greg Carson MD [address] [facility] [place] [address] PCP - General 02/21/18 documented as of this encounter
== END 2025-02-25 11:59 | disposition home or self-care (01) ==
LOC: HO.HOS 11:20
PROVIDERS: PCP Physician Assistant; Visit Provider Physician Assistant
DX: M75.102 Unspecified rotator cuff tear or rupture of left shoulder, not specified as traumatic (principal)
CPT/HCPCS: 99214

== ENCOUNTER → 2025-02-25 11:25 | Outpatient (BNV) | payer OTHER, SELFPAY | PROVIDERS: Visit Provider Radiology Diagnostic Radiology | DX: M25.512 Pain in left shoulder (principal) | CPT/HCPCS: 73030 ==

== ENCOUNTER 2025-03-11 11:14 | Outpatient (REF) | payer OTHER, SELFPAY ==
[2025-03-11 11:32] LABS: MANUAL DIFF FLAG NO
--- OUTSIDE RECORDS SUMMARY | 2025-03-11 12:03 | XMS_ITS | Encounter Summary ---
Author Organization [facility] Address [address] [place] [address] Phone Care Team Providers Care Test Consultant Name Role Phone Greg Carson MD Primary Care Provider [phone] Encounter Details Date Type Department Care Team (Late st Contact Info) Description 11/04/2011 Conversion Encounter [facility] [address] [place] [address] Social History Tobacco Use Types Packs/Day Years [...] on filedocumented in this encounter Care Teams Test Consultant Relationship Specialty Start Date End Date Greg Carson MD [address] [place] [place] [address] PCP - General 02/21/18 documented as of this encounter
[2025-03-11 12:21] LABS: Basophils Percent Auto 0.2 % (0-2); Eosinophils Absolute Auto 0.2 X10*3/uL (0.0-0.4); Eosinophils Percent Auto 2.6 % (0-4); Hematocrit 44.9 % (42.0-52.0); Hemoglobin 15.8 g/dl (14.0-18.0); Imm Gran Abs Auto 0.03 X10*3/uL (0.00-0.03); Imm Gran Pct Auto 0.4 % (0.0-0.4); Lymphocytes Absolute Auto 1.4 X10*3/uL (1.2-4.9); Lymphocytes Percent Auto 16.9 % (20-40); Mean Corpuscular HGB Conc 35.2 g/dl (31.0-36.0); Mean Corpuscular Hemoglobin 28.9 pg (27.0-33.0); Mean Corpuscular Volume 82.1 fL (80.0-98.0); Mean Platelet Volume 9.2 fL (9.4-12.4); Monocytes Absolute Auto 0.5 X10*3/uL (0.1-1.2); Monocytes Percent Auto 6.2 % (2-11); Neutrophils Absolute Auto 6.2 x10*3/uL (2.0-8.3); Neutrophils Percent Auto 73.7 % (45-73); Platelet Count 194 X10*3/uL (160-400); Red Blood Count 5.47 X10*6/uL (4.60-5.80); Red Cell Distribution Width 13.2 % (11.0-16.0); White Blood Count 8.4 X10*3/uL (4.8-10.8)
[2025-03-11 12:40] LABS: Rheumatoid Factor 16.1 IU/mL (<15.0)
[2025-03-11 12:47] LABS: Alanine Aminotransferase 57 U/L (0-40); Albumin Level 4.8 g/dL (3.5-5.0); Alkaline Phosphatase 125 U/L (39-117); Anion Gap 11 (12-20); Aspartate Amino Transferase 34 U/L (5-37); Bilirubin Total 0.8 mg/dL (0.0-1.0); Blood Urea Nitrogen 7 mg/dL (9-16); C Reactive Protein 0.51 mg/dL (< or = 0.50); Calcium 9.1 mg/dL (8.4-10.2); Carbon Dioxide 29 mmol/L (22-29); Chloride 107 mmol/L (96-108); Estimated Glomerular Filt Rate > 60; Glucose Random 102 mg/dL (60-115); Potassium 3.8 mmol/L (3.3-5.1); Sodium 143 mmol/L (135-145)
[2025-03-11 13:00] LABS: Erythrocyte Sedimentation Rate 2 MM/HR (0-15)
[2025-03-11 13:11] LABS: HBS Num1 20.59 mIU/mL (0-7.99); HBc Num1 0.04 S/CO (0.00-0.79); HBsAGNum1 0.29 S/CO (0.00-0.99); Hepatitis A Antibody IgM 0.19 Index (0-0.79); Hepatitis B Core Antibody Nonreactive (Nonreactive); Hepatitis B Surface Antigen Negative (Negative); ~HepC Num1 0.12 S/CO (0.00-0.79); ~Hepatitis A Antibody IgM Nonreactive (Nonreactive); ~Hepatitis B Surface Antibody REACTIVE (Nonreactive); ~Hepatitis C Antibody Nonreactive (Nonreactive)
[2025-03-14 00:34] LABS: TS Negative Control Passed; TS Panel A 0; TS Panel B 0; TS Positive Control Passed; TSpotTB Negative (Negative)
== END 2025-03-11 11:15 | disposition home or self-care (01) ==
LOC: HO.LAB 11:14
PROVIDERS: PCP Physician Assistant; Visit Provider Student in an Organized Health Care Education/Training Program
DX: M05.9 Rheumatoid arthritis with rheumatoid factor, unspecified (principal)
CPT/HCPCS: 36415; 80053; 85025; 85652; 86140; 86431; 86481; 86704; 86706; 86709; 86803; 87340

== ENCOUNTER 2025-03-14 09:26 | Outpatient (AMB) | payer OTHER, SELFPAY ==
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
--- OUTSIDE RECORDS SUMMARY | 2025-03-14 09:45 | XMS_ITS | Encounter Summary ---
Author Organization [facility] Address [address] [place] [address] Phone Care Team Providers Care Card Painter Name Role Phone Greg Carson MD Primary Care Provider [phone] Encounter Details Date Type Department Care Team (Late st Contact Info) Description 11/04/2011 Conversion Encounter [facility] [address] [facility] [place] [address] Social History Tobacco Use Types Packs/Day Years [...] on filedocumented in this encounter Care Teams Card Painter Relationship Specialty Start Date End Date Greg Carson MD [address] [facility] [place] [address] PCP - General 02/21/18 documented as of this encounter
[2025-03-14 09:47] VITALS: BP 132/80; PULSE 70; O2SAT 98; BMI 28.2
== END 2025-03-14 10:19 | disposition home or self-care (01) ==
LOC: HO.RHE 09:27
PROVIDERS: PCP Physician Assistant; Visit Provider Student in an Organized Health Care Education/Training Program
DX: M05.79 Rheumatoid arthritis with rheumatoid factor of multiple sites without organ or systems involvement (principal); Z51.81 Encounter for therapeutic drug level monitoring; Z79.631 Long term (current) use of antimetabolite agent; Z79.620 Long term (current) use of immunosuppressive biologic
CPT/HCPCS: 99214; G2211

== ENCOUNTER → 2025-03-14 09:26 | Outpatient (BNVA) | payer OTHER, SELFPAY | PROVIDERS: PCP Physician Assistant; Visit Provider Student in an Organized Health Care Education/Training Program | DX: M05.9 Rheumatoid arthritis with rheumatoid factor, unspecified (principal); Z51.81 Encounter for therapeutic drug level monitoring; Z79.631 Long term (current) use of antimetabolite agent; Z79.620 Long term (current) use of immunosuppressive biologic | CPT/HCPCS: 99212 ==

== ENCOUNTER 2025-06-20 11:22 | Outpatient (REF) | payer OTHER, SELFPAY ==
--- OUTSIDE RECORDS SUMMARY | 2025-04-11 16:17 | XMS_ITS | Encounter Summary ---
Author Organization [facility] Address [address] [facility] [address] [place] [address] Phone Care Team Providers Care Hot Wound Spring Production Supervisor Name Role Phone Nash Simons Primary Care Provider + Encounter Details Date Type Department Care Team (Late st Contact Info) Description 04/11/2025 4:17 PM EDT Hospital Encounter [facility] [address] [place] [address] Sara Conner CNP [address] [place] [address] Social History Tobacco Use Types Packs/Day Years Used Date Smoking Tobacco: Never Smokeless Tobacco: Never Education Answer Date Recorded Are you interested in more education? Not on leslie e 03/13/2025 Are you concerned about learning? Not on file 03/13/2025 No 03/13/2025 No 03/13/2025 Digital Access Answer Date Recorded No 03/13/2025 No 03/13/2025 Reliable internet access at home? Not on file 03/13/2025 Device with a working camera? Not on file Sex and Gender Information Value Date Recorded Sex Assigned at Not on file Legal Sex Male 12:10 PM EDT Gender Identity Not on file Sexual Orientation Not on file documented as of this encounter Plan of Treatment Not on file documented as of this encounter Procedures Procedure Name Priority Date/Time Associated Diagnosis Comments XR RIBS 2 VIEWS (LEFT) Routine 04/11/2025 4:31 PM EDT Rib pain on left side documented in this encounter Results * XR RIBS 2 VIEWS (LEFT) (04/11/2025 4:31 PM EDT) Anatomical Region Laterality Modality Chest Computed Radiogr aphy 04/11/2025 4:36 PM EDT Impressions 04/11/2025 4:37 PM EDT No acute abnormality. Narrative 04/11/2025 4:37 PM EDT XR CHEST PA AND LATERAL 2 VIEWS, XR RIBS 2 VIEWS (LEFT) Referring clinician's provided indication for this examination in [facility]: Pain COMPARISON: None FINDINGS: Devices/Tubes/Lines: None. Lungs: No consolidation or pulmonary edema. Pleura: No pleural effusion or pneumothorax. Heart/Mediastinum: Normal heart and mediastinum. Bones/Soft Tissues: No significant skeletal abnormality. No displaced left-sided rib fractures. Procedure Note Alphonso Claudio MD - 04/11/2025 XR CHEST PA AND LATERAL 2 VIEWS, XR RIBS 2 VIEWS (LEFT) Referring clinician's provided indication for this examination in [facility]:Pain COMPARISON: None FINDINGS: Devices/Tubes/Lines: None. Lungs: No consolidation or pulmonary edema. Pleura: No pleural effusion or pneumothorax. Heart/Mediastinum: Normal heart and mediastinum. Bones/Soft Tissues: No significant skeletal abnormality. No displacedleft-sided rib fractures. IMPRESSION: No acute abnormality. Sara Conner TEMPER MILL ROLLER IMG XR CHEST Final Resul t documented in this encounter Visit Diagnoses Not on filedocumented in this encounter Care Teams Hot Wound Spring Production Supervisor Relationship Specialty Start Date End Date Nash Simons PA [address] [place] [address] PCP - General Physician Automatic Lathe Operator 03/13/25 documented as of this encounter Additional Source Comments The information contained in this document represents components of the legal health record. It is not the complete legal health record.[facility]
--- OUTSIDE RECORDS SUMMARY | 2025-04-11 16:17 | XMS_ITS | Encounter Summary ---
Author Organization [facility] Address [address] [facility] [address] [place] [phone] Phone Care Team Providers Care Blow Molder Name Role Phone Nash Simons Primary Care Provider + Encounter Details Date Type Department Care Team (Late st Contact Info) Description 04/11/2025 4:17 PM EDT Hospital Encounter [facility] [address] [place] [phone] Sara Conner CNP [address] [place] [phone] [email or web address] Social History Tobacco Use Types Packs/Day Years [...] clinician's provided indication for this examination in [facility]: Pain COMPARISON: None FINDINGS: Devices/Tubes/Lines: None. Lungs: No consolidation or pulmonary edema. Pleura: No pleural effusion or pneumothorax. Heart/Mediastinum: Normal heart and mediastinum. Bones/Soft Tissues: No significant skeletal abnormality. No displaced left-sided rib fractures. Procedure Note Alphonso Claudio MD - 04/11/2025 XR CHEST PA AND LATERAL 2 VIEWS, XR RIBS 2 VIEWS (LEFT) Referring clinician's provided indication for this examination in [facility]:Pain COMPARISON: None FINDINGS: Devices/Tubes/Lines: None. Lungs: No consolidation or pulmonary edema. Pleura: No pleural effusion or pneumothorax. Heart/Mediastinum: Normal heart and mediastinum. Bones/Soft Tissues: No significant skeletal abnormality. No displacedleft-sided rib fractures. IMPRESSION: No acute abnormality. Sara Conner PRODUCTION ASSEMBLY SUPERVISOR IMG XR CHEST Final Resul t documented in this encounter Visit Diagnoses Not on filedocumented in this encounter Care Teams Blow Molder Relationship Specialty Start Date End Date Nash Simons PA [address] [place] [address] PCP - General Physician Die Maintenance 03/13/25 documented as of this encounter Additional Source Comments The information contained in this document represents components of the legal health record. It is not the complete legal health record.[facility]
[2025-06-20 12:08] LABS: MANUAL DIFF FLAG NO
--- OUTSIDE RECORDS SUMMARY | 2025-06-20 12:23 | XMS_ITS | Encounter Summary ---
Author Organization [facility] Address [address] [place] [phone] Phone Care Team Providers Care Bereavement Counselor Name Role Phone Greg Carson MD Primary Care Provider [phone] Encounter Details Date Type Department Care Team (Late st Contact Info) Description 11/04/2011 Conversion Encounter [facility] [address] [facility] [place] [address] Social History Tobacco Use Types Packs/Day Years [...] on filedocumented in this encounter Care Teams Bereavement Counselor Relationship Specialty Start Date End Date Greg Carson MD [address] [facility] [place] [place] [address] PCP - General 02/21/18 documented as of this encounter
--- OUTSIDE RECORDS SUMMARY | 2025-06-20 12:23 | XMS_ITS | Clinical Summary ---
Author Organization [facility] Address [address] [place] [phone] Phone Care Team Providers Care Bag Grader Name Role Phone Nash Simons Primary Care Provider + Allergies No known active allergies Medications VENTOLIN HFA 90 mcg/actuation inhaler INHALE 1 PUFF 4 TIMES A DAY NEEDED FOR SHORTNESS OF BREATH OR WHEEZING FOR 30 DAYS 5 Active folic acid (FOLVITE) 1 MG tablet Take 1 tablet by mouth every morning. 5 Active methotrexate 2.5 MG Oral tablet 5 Active HUMIRA,CF, PEN 40 mg/0.4 mL pen kit citrate free 5 Active tiZANidine (ZANAFLEX) 2 MG tablet Take 1 tablet (2 mg total) by mouth every 6 (six) hours as needed (left rib pain). 15 tablet 5 Active Active Problems No known active problems Encounters Date Type Department Care Team Description 04/11/2025 4:17 PM EDT Hospital Encounter [facility] [address] [place] [phone] Sara Conner CNP 04/11/2025 4:17 PM EDT Hospital Encounter [facility] [address] [place] [phone] Sara Conner CNP 04/11/2025 3:20 PM EDT Office Visit [facility] at [address] [address] Sara Conner CNP Rib pain on left side (Primary Dx) from Last 3 Months Immunizations No known immunizations Social History Tobacco Use Types Packs/Day Years Used Date Smoking Tobacco: Never Smokeless Tobacco: Never Tobacco Cessation:Counseling Given: Not Answered Education Answer Date Recorded Are you interested [...] Sign Reading Time Taken Comments Blood Pressure 125/75 04/11/2025 4:05 PM EDT Pulse 68 04/11/2025 4:05 PM EDT Temperature 36.7 C (98 F) 04/11/2025 4:05 PM EDT Respiratory Rate 17 04/11/2025 4:05 PM EDT Oxygen Saturation 99% 04/11/2025 4:05 PM EDT Inhaled Oxygen Concentration - - Weight 88.5 kg (195 lb) 03/13/2025 12:21 PM EDT Height 175.3 cm (5' 9 ) 03/13/2025 12:21 PM EDT Body Mass Index 28.8 03/13/2025 12:21 PM EDT Plan of Treatment Health Maintenance Due Date Last Done Comments COVID-19 VACCINE (#1) 2003 DEPRESSION SCREENING 2010 HEPATITIS C SCREENING 01/16/2016 HIV ONE-TIME SCREENING (18-6 5 YEARS) 01/16/2016 PNEUMOCOCCAL VACCINES (0-49 years) (1 of 2 - PCV) 2017 Adult Td,Tdap Booster 06/24/2029 06/24/2019 , 07/14/2010 SMOKING STATUS SCREENING (On ce After 26 Yrs) Completed 04/11/2025 HEPATITIS A VACCINES Aged Out No long er eligible based on patient's age to complete this topic HIB VACCINES Aged Out No longer eligi ble based on patient's age to complete this topic MENINGOCOCCAL VACCINES (ACWY) Aged Out No longer eligible based on patient's age to complete this topic MENINGOCOCCAL VACCINES (B) Aged Out N o longer eligible based on patient's age to complete this topic Medical Devices Not on file Procedures Procedure Name Priority Date/Time Associated Diagnosis Comments XR RIBS 2 VIEWS (LEFT) Routine 04/11/2025 4:31 PM EDT Rib pain on left side XR CHEST PA AND LATERAL 2 VIEWS Urgent/patient waiting 04/11/2025 4:30 PM EDT Rib pain on left side from Last 3 Months Results * XR RIBS 2 VIEWS (LEFT) (04/11/2025 4:31 PM EDT) Anatomical Region Laterality Modality Chest Computed Radiogr aphy 04/11/2025 4:36 PM EDT Impressions 04/11/2025 4:37 PM EDT No acute abnormality. Narrative 04/11/2025 4:37 PM EDT XR CHEST PA AND LATERAL 2 VIEWS, XR RIBS 2 VIEWS (LEFT) Referring clinician's provided indication for this examination in Epic: Pain COMPARISON: None FINDINGS: Devices/Tubes/Lines: None. Lungs: No consolidation or pulmonary edema. Pleura: No pleural effusion or pneumothorax. Heart/Mediastinum: Normal heart and mediastinum. Bones/Soft Tissues: No significant skeletal abnormality. No displaced left-sided rib fractures. Procedure Note Alphonso Claudio MD - 04/11/2025 XR CHEST PA AND LATERAL 2 VIEWS, XR RIBS 2 VIEWS (LEFT) Referring clinician's provided indication for this examination in [facility]:Pain COMPARISON: None FINDINGS: Devices/Tubes/Lines: None. Lungs: No consolidation or pulmonary edema. Pleura: No pleural effusion or pneumothorax. Heart/Mediastinum: Normal heart and mediastinum. Bones/Soft Tissues: No significant skeletal abnormality. No displacedleft-sided rib fractures. IMPRESSION: No acute abnormality. Sara Conner GENERAL UTILITY WORKER IMG XR CHEST Final Resul t * XR CHEST PA AND LATERAL 2 VIEWS (04/11/2025 4:30 PM EDT) Anatomical Region Laterality Modality Chest Computed Radiogr aphy 04/11/2025 4:36 PM EDT Impressions 04/11/2025 4:37 PM EDT No acute abnormality. Narrative 04/11/2025 4:37 PM EDT XR CHEST PA AND LATERAL 2 VIEWS, XR RIBS 2 VIEWS (LEFT) Referring clinician's provided indication for this examination in [facility]: Pain COMPARISON: None FINDINGS: Devices/Tubes/Lines: None. Lungs: No consolidation or pulmonary edema. Pleura: No pleural effusion or pneumothorax. Heart/Mediastinum: Normal heart and mediastinum. Bones/Soft Tissues: No significant skeletal abnormality. No displaced left-sided rib fractures. Procedure Note Alphonso Claudio MD - 04/11/2025 XR CHEST PA AND LATERAL 2 VIEWS, XR RIBS 2 VIEWS (LEFT) Referring clinician's provided indication for this examination in [facility]:Pain COMPARISON: None FINDINGS: Devices/Tubes/Lines: None. Lungs: No consolidation or pulmonary edema. Pleura: No pleural effusion or pneumothorax. Heart/Mediastinum: Normal heart and mediastinum. Bones/Soft Tissues: No significant skeletal abnormality. No displacedleft-sided rib fractures. IMPRESSION: No acute abnormality. Sara Conner GENERAL UTILITY WORKER IMG XR CHEST Final Resul t from Last 3 Months Insurance [facility] [employer] A[place] [id number] [place] [address] [id number] [place] [address] ACO [facility] [employer] [facility] [employer] Care Teams Bag Grader Relationship Specialty Start Date End Date Nash Simons PA [address] [place] [address] PCP - General Physician Laboratory Technologist 03/13/25 Additional Source Comments The information contained in this document represents components of the legal health record. It is not the complete legal health record.[facility]
--- OUTSIDE RECORDS SUMMARY | 2025-06-20 12:24 | XMS_ITS | Clinical Summary ---
Author Organization [facility] Address [address] [place] [phone] Phone Care Team Providers Care Staffing Branch Manager Name Role Phone Greg Carson MD Primary Care Provider [phone] Immunizations Immunization Administration Dates Next Due DTaP [...] 58 06/16/2016 2:56 PM EDT Temperature 36.9 C (98.4 F) 05/17/2017 11:26 AM EDT Respiratory Rate - - Oxygen Saturation - [...] 07/14/2020 07/14/2010, 04/10/2003, 10/27/2000, Additional history exists HPV Vaccines (1 - 3-dose SCDM series) 2025 Influenza Vaccines (#1) 2025 COVID-19 Vaccine ( season) 2025 Hepatitis B Vaccines Completed 1998, 1998, 1998 [...] age to complete this topic Care Teams Staffing Branch Manager Relationship Specialty Start Date End Date Greg Carson MD [address] [place] [address] [place] [address] PCP - General 02/21/18
[2025-06-20 12:32] LABS: Hematocrit 45.3 % (42.0-52.0); Hemoglobin 16.4 g/dl (14.0-18.0); Imm Gran Abs Auto 0.01 X10*3/uL (0.00-0.03); Imm Gran Pct Auto 0.2 % (0.0-0.4); Lymphocytes Absolute Auto 1.9 X10*3/uL (1.2-4.9); Mean Corpuscular HGB Conc 36.2 g/dl (31.0-36.0); Mean Corpuscular Hemoglobin 30.4 pg (27.0-33.0); Mean Corpuscular Volume 83.9 fL (80.0-98.0); NRBC Abs Auto 0.000 X10*3/uL (0.0-0.012); NRBC Pct Auto 0.0 /100WBC (0.0-0.2); Platelet Count 189 X10*3/uL (160-400); Red Blood Count 5.40 X10*6/uL (4.60-5.80); White Blood Count 5.9 X10*3/uL (4.8-10.8)
[2025-06-20 13:02] LABS: Alanine Aminotransferase 63 U/L (0-40); Albumin Level 5.0 g/dL (3.5-5.0); Alkaline Phosphatase 127 U/L (39-117); Anion Gap 13 (12-20); Aspartate Amino Transferase 33 U/L (5-37); Blood Urea Nitrogen 11 mg/dL (9-16); Calcium 9.3 mg/dL (8.4-10.2); Carbon Dioxide 28 mmol/L (22-29); Chloride 105 mmol/L (96-108); Estimated Glomerular Filt Rate > 60; Potassium 4.1 mmol/L (3.3-5.1); Sodium 142 mmol/L (135-145); Total Protein 7.3 g/dL (6.5-8.0)
== END 2025-06-20 11:23 | disposition home or self-care (01) ==
LOC: HO.LAB 11:22
PROVIDERS: PCP Physician Assistant; Visit Provider Student in an Organized Health Care Education/Training Program
DX: M05.9 Rheumatoid arthritis with rheumatoid factor, unspecified (principal)
CPT/HCPCS: 36415; 80053; 85025; 85652; 86140

== ENCOUNTER 2025-06-24 12:35 | Outpatient (AMB) | payer OTHER, SELFPAY ==
--- OUTSIDE RECORDS SUMMARY | 2025-04-11 16:17 | XMS_ITS | Encounter Summary ---
Author Organization [facility] Address [address] [facility] [address] [place] [address] Phone Care Team Providers Care Biology Adjunct Instructor Name Role Phone Nash Simons Primary Care Provider + Encounter Details Date Type Department Care Team (Late st Contact Info) Description 04/11/2025 4:17 PM EDT Hospital Encounter [facility] [address] [place] [address] Sara Conner CNP [address] [place] [phone] Social History Tobacco Use Types Packs/Day Years Used Date Smoking Tobacco: Never Smokeless Tobacco: Never Education Answer Date Recorded Are you interested in more education? Not on lesile e 03/13/2025 Are you concerned about learning? [...] Name Priority Date/Time Associated Diagnosis Comments XR CHEST PA AND LATERAL 2 VIEWS Urgent/patient waiting 04/11/2025 4:30 PM EDT Rib pain on left side documented in this encounter Results * XR CHEST PA AND LATERAL 2 VIEWS (04/11/2025 4:30 PM EDT) Anatomical Region Laterality Modality Chest Computed Radiogr aphy 04/11/2025 4:36 PM EDT Impressions 04/11/2025 4:37 PM EDT No acute abnormality. Narrative 04/11/2025 4:37 PM EDT XR CHEST PA AND LATERAL 2 VIEWS, XR RIBS 2 VIEWS (LEFT) Referring clinician's provided indication for this examination in [place] [facility]: Pain COMPARISON: None FINDINGS: Devices/Tubes/Lines: None. Lungs: No consolidation or pulmonary edema. Pleura: No pleural effusion or pneumothorax. Heart/Mediastinum: Normal heart and mediastinum. Bones/Soft Tissues: No significant skeletal abnormality. No displaced left-sided rib fractures. Procedure Note Alphonso Claudio MD - 04/11/2025 XR CHEST PA AND LATERAL 2 VIEWS, XR RIBS 2 VIEWS (LEFT) Referring clinician's provided indication for this examination in [place] [facility]:Pain COMPARISON: None FINDINGS: Devices/Tubes/Lines: None. Lungs: No consolidation or pulmonary edema. Pleura: No pleural effusion or pneumothorax. Heart/Mediastinum: Normal heart and mediastinum. Bones/Soft Tissues: No significant skeletal abnormality. No displacedleft-sided rib fractures. IMPRESSION: No acute abnormality. Sara Conner GUIDE VISITOR IMG XR CHEST Final Resul t documented in this encounter Visit Diagnoses Not on filedocumented in this encounter Care Teams Biology Adjunct Instructor Relationship Specialty Start Date End Date Nash Simons PA [address] [place] [address] PCP - General Physician Lead Producer 03/13/25 documented as of this encounter Additional Source Comments The information contained in this document represents components of the legal health record. It is not the complete legal health record.[facility]
--- OUTSIDE RECORDS SUMMARY | 2025-04-11 16:17 | XMS_ITS | Encounter Summary ---
Author Organization [facility] Address [address] [facility] [address] [place] [phone] Phone Care Team Providers Care Infrastructure Tech Name Role Phone Nash Simons Primary Care Provider + Encounter Details Date Type Department Care Team (Late st Contact Info) Description 04/11/2025 4:17 PM EDT Hospital Encounter [facility] [address] [place] [phone] Sara Conner CNP [address] [place] [phone] Social History Tobacco Use Types Packs/Day Years [...] clinician's provided indication for this examination in [facility]: Pain COMPARISON: None FINDINGS: Devices/Tubes/Lines: None. Lungs: No consolidation or pulmonary edema. Pleura: No pleural effusion or pneumothorax. Heart/Mediastinum: Normal heart and mediastinum. Bones/Soft Tissues: No significant skeletal abnormality. No displaced left-sided rib fractures. Procedure Note Alphonso Claudio MD - 04/11/2025 XR CHEST PA AND LATERAL 2 VIEWS, XR RIBS 2 VIEWS (LEFT) Referring clinician's provided indication for this examination in [facility]:Pain COMPARISON: None FINDINGS: Devices/Tubes/Lines: None. Lungs: No consolidation or pulmonary edema. Pleura: No pleural effusion or pneumothorax. Heart/Mediastinum: Normal heart and mediastinum. Bones/Soft Tissues: No significant skeletal abnormality. No displacedleft-sided rib fractures. IMPRESSION: No acute abnormality. Sara Conner INTERNAL COMMUNICATIONS WRITER IMG XR CHEST Final Resul t documented in this encounter Visit Diagnoses Not on filedocumented in this encounter Care Teams Infrastructure Tech Relationship Specialty Start Date End Date Nash Simons PA [address] [place] [address] PCP - General Physician Cartridge Feeder 03/13/25 documented as of this encounter Additional Source Comments The information contained in this document represents components of the legal health record. It is not the complete legal health record.[facility]
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
[2025-06-24 12:54] VITALS: BP 132/74; PULSE 74; O2SAT 97; BMI 27.5
--- OUTSIDE RECORDS SUMMARY | 2025-06-24 14:54 | XMS_ITS | Clinical Summary ---
Author Organization [facility] Address [address] [place] [id number] Phone Care Team Providers Care Wind Energy Technician Name Role Phone Greg Carson MD Primary Care Provider [phone] Immunizations Immunization Administration Dates Next Due DTaP [...] age to complete this topic Care Teams Wind Energy Technician Relationship Specialty Start Date End Date Greg Carson MD [address] [place] [address] [place] [address] PCP - General 02/21/18
--- OUTSIDE RECORDS SUMMARY | 2025-06-24 14:54 | XMS_ITS | Clinical Summary ---
Author Organization [facility] Address [address] [place] [address] Phone Care Team Providers Care Director Of Training Name Role Phone Nash Simons Primary Care [...] Description 04/11/2025 4:17 PM EDT Hospital Encounter [facility] [address] [place] [id number] Sara Conner CNP 04/11/2025 4:17 PM EDT Hospital Encounter [facility] [address] [place] [id number] Sara Conner CNP 04/11/2025 3:20 PM EDT Office Visit [facility] at [address] [phone] Sara Conner CNP Rib pain on left [...] years) (1 of 2 - PCV) 2017 INFLUENZA VACCINE (#1) 2025 Adult Td,Tdap Booster 06/24/2029 06/24/2019 , 07/14/2010 [...] clinician's provided indication for this examination in Epic:Pain COMPARISON: None FINDINGS: Devices/Tubes/Lines: None. Lungs: No consolidation or pulmonary edema. Pleura: No pleural effusion or pneumothorax. Heart/Mediastinum: Normal heart and mediastinum. Bones/Soft Tissues: No significant skeletal abnormality. No displacedleft-sided rib fractures. IMPRESSION: No acute abnormality. Sara Conner ADMINISTRATIVE ASSISTANT RECEPTIONIST IMG XR CHEST Final Resul t * XR CHEST PA AND LATERAL 2 VIEWS (04/11/2025 4:30 PM EDT) Anatomical Region Laterality Modality Chest Computed Radiogr aphy 04/11/2025 4:36 PM EDT Impressions 04/11/2025 4:37 PM EDT No acute abnormality. Narrative 04/11/2025 4:37 PM EDT XR CHEST PA AND LATERAL 2 VIEWS, XR RIBS 2 VIEWS (LEFT) Referring clinician's provided indication for this examination in [facility]: Pain COMPARISON: None FINDINGS: Devices/Tubes/Lines: None. Lungs: No consolidation or pulmonary edema. Pleura: No pleural effusion or pneumothorax. Heart/Mediastinum: Normal heart and mediastinum. Bones/Soft Tissues: No significant skeletal abnormality. No displaced left-sided rib fractures. Procedure Note Alphonso Claudio MD - 04/11/2025 XR CHEST PA AND LATERAL 2 VIEWS, XR RIBS 2 VIEWS (LEFT) Referring clinician's provided indication for this examination in [facility]:Pain COMPARISON: None FINDINGS: Devices/Tubes/Lines: None. Lungs: No consolidation or pulmonary edema. Pleura: No pleural effusion or pneumothorax. Heart/Mediastinum: Normal heart and mediastinum. Bones/Soft Tissues: No significant skeletal abnormality. No displacedleft-sided rib fractures. IMPRESSION: No acute abnormality. Sara Conner ADMINISTRATIVE ASSISTANT RECEPTIONIST IMG XR CHEST Final Resul t from Last 3 Months Insurance [facility] [place] [address] [place] [address] [id number] [place] [address] [id number] [place] [address] [facility] [facility] Care Teams Director Of Training Relationship Specialty [place] [address] [place] [phone] PCP - General Physician Bow Tacker 03/13/25 Additional Source Comments The information contained in this document represents components of the legal health record. It is not the complete legal health record.[facility]
--- OUTSIDE RECORDS SUMMARY | 2025-06-24 14:54 | XMS_ITS | Encounter Summary ---
Author Organization [facility] Address [address] [place] [phone] Phone Care Team Providers Care Folder Seamer Name Role Phone Greg Carson MD Primary Care Provider [phone] Encounter Details Date Type Department Care Team (Late st Contact Info) Description 11/04/2011 Conversion Encounter [facility] [address] [place] [id number] Social History Tobacco Use Types Packs/Day Years [...] on filedocumented in this encounter Care Teams Folder Seamer Relationship Specialty Start Date End Date Greg Carson MD [address] [place] [id number] PCP - General 02/21/18 documented as of this encounter
== END 2025-06-24 13:35 | disposition home or self-care (01) ==
LOC: HO.RHES 12:35
PROVIDERS: PCP Physician Assistant; Visit Provider Student in an Organized Health Care Education/Training Program
DX: M05.9 Rheumatoid arthritis with rheumatoid factor, unspecified (principal); Z51.81 Encounter for therapeutic drug level monitoring; Z79.631 Long term (current) use of antimetabolite agent; Z79.620 Long term (current) use of immunosuppressive biologic
CPT/HCPCS: 99214

== ENCOUNTER → 2025-06-24 12:35 | Outpatient (BNVA) | payer OTHER, SELFPAY | PROVIDERS: PCP Physician Assistant; Visit Provider Student in an Organized Health Care Education/Training Program | DX: M05.9 Rheumatoid arthritis with rheumatoid factor, unspecified (principal); Z51.81 Encounter for therapeutic drug level monitoring; Z79.631 Long term (current) use of antimetabolite agent; Z79.620 Long term (current) use of immunosuppressive biologic | CPT/HCPCS: 99212 ==

== ENCOUNTER 2025-07-24 11:07 | Outpatient (AMB) | payer OTHER, SELFPAY ==
--- NOTE | 2025-07-24 11:14 | A.OFFPC_ITS ---
Vital Signs 07/24/25 11:15 Height 5 ft 9 in Weight 186 lb 4 oz BMI 27.5 BP 116/64 Blood Pressure Location Lt brachial Position Sitting Pulse 72 Pulse Source Pulse Oximeter Temp 973 F H Temp Source Temporal Artery Scan Pulse Oximetry (%) 98 Oxygen Delivery Method Room Air Intake Visit Reasons: Annual Exam Intake Note: Patient is here today for a physical. Tinter Photograph Required: No Vice President Of Development: Present Accompanied by: Dependent of Minor Dependent Allergies meloxicam Adverse Reaction (Intermediate, Verified 07/24/25 11:58) ineffective Medication List - Last Reconciled 07/24/25 by Nash Simons PA-C adalimumab (Humira(CF) Pen) 40 mg (0.4 mL) subcut Q2W albuterol sulfate 90 mcg/actuation (Proventil HFA) 1 inh inhalation QID PRN 30 days leucovorin calcium 5 mg PO QWEEK 90 days methotrexate sodium 15 mg (6 x 2.5 mg) PO QWEEK 90 days Tobacco use date assessed: 07/24/25 Dental Screening Dental Screen Date: 07/24/25 Did you have a dental visit in the last 12 months?: No Did you have a dental problem in the last 6 months where you did not have access to dental care?: No Was dental information given to patient?: No HPI Annual Exam HPI Details Patient is a 25 year-old male here today for a PE. .? Patient's past medical history significant for asthma, rheumatoid arthritis, GERD, cervical spine pain ( work related injury) . Concerns--> patient reports over last few weeks having random episodes of chest pain. Has gotten a cardiac stress test in 2022 which was essentially normal. Unclear etiology to his chest discomforts thus will send for another cardiac stress test to evaluate for cardiac ischemia on physical exertion. Otherwise we discuss possibly having side effect of medication and/or could be related to his rheumatoid arthritis joint pain .. Rheumatoid arthritis: Patient has seropositive RA and followed by Rheumatology. He continues on Humira which has significantly helped him with his joint pains. He reports methotrexate was not very effective. He has been trying to do a vegan diet to help him with his inflammatory disease. He is interested in seeing a dietitian to give him inside on low inflammatory diet. Asthma: He reports he has been using his inhaler and a bit more as of late. Could be related to a change in seasons.. VAccine: Considering COVID vac, Declines flu.? UTD Tdap. ? PFSH Medical History Seropositive rheumatoid arthritis Armpit abscess Armpit abscess Asthma Surgical History History of cystostomy Family History (Updated 07/24/25 @ 12:02 by Nash Simons PA-C) Mother Diabetes Heart problem CAD (coronary artery disease) Osteoporosis Father High blood pressure Asthma Mental health disorder Brother ESRD (end stage renal disease) on dialysis Social History Household Members: Family Housing: Apartment Alcohol intake: never Patient Tobacco Use Status: Never used Tobacco e-Cigarette/Vaping Use: Never Used Second Hand Smoke Exposure: No service: No Current occupational status: unemployed Current occupation: right hand dominant Cognitive needs: No Hearing needs: No Vision needs: No Questionnaire PHQ-9 Over the last 2 weeks, how often have you been bothered by any of the following problems? 1. Little interest or pleasure in doing things: several days 2. Feeling down, depressed, or hopeless: several days 3. Trouble falling or staying asleep, or sleeping too much: more than half the days 4. Feeling tired or having little energy: more than half the days 5. Poor appetite or overeating: several days 6. Feeling bad about yourself - or that you are a failure or have let yourself or your family down: several days 7. Trouble concentrating on things, such as reading the newspaper or watching television: several days 8. Moving or speaking so slowly that other people could have noticed. Or the opposite - being so fidgety or restless that you have been moving around a lot more than usual: not at all 9. Thoughts that you would be better off or of hurting yourself in some way: not at all Total score: 9 Depression Screening Interpretation: Positive Depression Screening Follow-up: Existing condition Depression Screening Done: Yes 16030 - PHQ-9 Billing: Yes Source: Developed by Drs. Vinnie Drake, Genny James, Ramez Ledezma and colleagues, with an educational kasi from [employer]. Thrive Questionnaire Date Thrive assessed: 07/24/25 I am a: Patient What is your living situation today?: I have a steady place to live Within the past 12 months, did the food you bought not last and you didn't have the money to get more?: Never true Within the past 12 months, did you worry whether your food would run out before you got money to buy more?: Never true Do you have trouble paying for medicines?: No Do you have trouble getting transportation to medical appointments?: No Do you have trouble paying your heating and electricity bill?: Yes Do you have trouble taking care of your child, family member or friend?: No Do you have trouble with day-to-day activities such as bathing, preparing meals, shopping, managing finances, etc.?: No Are you currently unemployed and looking for a job?: Yes Are you interested in more education?: No Please select the resources that you would like help with: None Currently or been in a relationship where the following occur: No concerns reported THRIVE Score: 1 AUDIT C Alcohol Use Questionnaire (AUDIT-C) 1. How often do you have a drink containing alcohol?: Never Total Score: 0 KISHORE-7 AMB Questionnaire KISHORE-7 Date KISHORE - 7 assessed: 07/24/25 Feeling nervous, anxious, or on edge: 1 = Several days Not being able to stop or control worryin = Several days Worrying too much about different things: 1 = Several days Trouble relaxin = Several days Being so restless that it is hard to sit still: 2 = More than half the days Becoming easily annoyed or irritable: 2 = More than half the days Feeling afraid as if something awful might happen: 1 = Several days Total KISHORE-7 score (0-4 normal; 5-9 mild; 10-14 moderate; 15-21 severe): 9 Source: Developed by Drs. Vinnie Drake, Genny James, Ramez Ledezma and colleagues, with an educational kasi from [employer]. KISHORE-7 Assessment Billing KISHORE-7 Assessment Tool: KISHORE-7 Assessment 94395 Review of Systems Const Denies body aches, Denies chills, Denies excessive sweating, Denies fatigue, Denies fever(s) and Denies headache(s) Eyes Denies blurry vision ENT Denies dysphagia, Denies vertigo, Denies dizziness, Denies headache(s), Denies hearing loss and Denies tinnitus Card Denies chest pain, Denies chest pain with activity, Denies syncope, Denies irregular heart rhythm and Denies dyspnea Resp Denies chest congestion, Denies cough, Denies hemoptysis, Denies dyspnea and Denies wheezing GI Denies abdominal pain, Denies melena, Denies hematochezia, Denies coffee ground emesis, Denies dysphagia, Denies diarrhea, Denies nausea and Denies vomiting Denies difficulty urinating, Denies dysuria, Denies urinary frequency, Denies urinary hesitancy and Denies urinary urgency Musc Denies arthralgias, Denies limited range of motion, Denies muscle cramps and Denies muscle weakness Skin/Breast Denies rash and Denies skin ulcer Neuro Denies Abnormal speech present, Denies confusion, Denies vertigo, Denies dizziness, Denies syncope, Denies headache(s), Denies memory loss and Denies seizure-like activity Psych Denies anxiety, Denies confusion, Denies depression, Denies memory loss, Denies panic attacks and Denies paranoia Endo Denies excessive sweating, Denies fatigue, Denies flushing, Denies polydipsia and Denies polyuria Aller/Immun Denies wheezing Physical exam (Primary Care) Vital Signs: Last Vital Signs Temp 973 F H 07/24/25 11:15 Pulse 72 07/24/25 11:15 BP 116/64 07/24/25 11:15 Pulse Ox 98 07/24/25 11:15 Oxygen Delivery Method Room Air 07/24/25 11:15 BMI result Body Mass Index 27.5 Tobacco/Smoking Status: Tobacco use Status Tobacco use date assessed 07/24/25 07/24/25 11:16 Patient Tobacco Use Status Never used Tobacco 07/24/25 11:16 e-Cigarette/Vaping Use Never Used 07/24/25 11:16 PHQ-9: PHQ-9 Score PHQ-9: Total score 9 07/24/25 11:59 Depression Screening Interpretation: Positive Depression Screening Follow-up: Existing condition Thrive Assessment: Date of Thrive Assessment Date Thrive assessed 07/24/25 07/24/25 11:16 Currently or been in a relationship where the following occur: No concerns reported Const General: cooperative, comfortable, no acute distress, alert and awake; No confusion Orientation/consciousness: oriented to person, oriented to place, patient oriented x3 and No confusion HENMT Head: Yes normocephalic Ears: external ears normal and TM's normal bilaterally Face and sinus: No sinus tenderness Mouth: Normal oral and palatal mucosa present and tongue normal Teeth and gingiva: dentition normal and gingiva normal Throat: Yes posterior oropharynx normal, Yes tonsils normal and Yes uvula midline Eyes Conjunctivae: conjunctivae normal Sclerae: sclerae normal Pupils: Equal, round and reactive pupils present EOM: EOMs intact bilaterally Direct Ophthalmoscopy: No no photophobia Neck Neck: Yes no lymphadenopathy, No tender and Yes no JVD Thyroid: Thyroid normal Carotids: no bruits Chest Chest palpation & inspection: no tenderness Resp Effort & Inspection: normal respiratory effort, no audible wheezes, not labored and no stridor Auscultation: no crackles, no rales, no rhonchi and no wheezes Cardio Jugular venous distension: no JVD Rate: regular rate, not bradycardic and not tachycardic Rhythm: regular rhythm Bruits: no carotid bruits Peripheral pulses: Peripheral pulses 2+ throughout GI Inspection: Yes normal to inspection, No abdominal wall ecchymosis and No visible herniation Palpation (GI): Soft to palpation, nontender, no guarding, not rigid and No hepatosplenomegaly present Auscultation: normoactive bowel sounds General: Yes no CVA tenderness Back/Spine/Pelvis Back: no CVA tenderness and No back tenderness Cervical Spine: cervical ROM normal Thoracic/Lumbar Spine: thoracic and lumbar spine normal to inspection, straight leg raise negative bilaterally, No thoraco-lumbar ROM limited and No lumbar spinal tenderness Skin Lesions: no lesions Rashes: no rashes Wounds: no wounds Neuro General: oriented to person, oriented to place, patient oriented x3, CN's II-XI intact bilaterally and No confusion Cranial nerves: Yes Equal, round and reactive pupils present and Yes Normal accommodation reflex present Cognition (Neuro): normal cognition Speech: No Abnormal speech present Gait exam (Neuro): Normal gait present Motor exam (neuro): 5/5 motor strength present throughout Extrem Right upper extremity: full ROM; no cyanosis Left upper extremity: full ROM; no cyanosis Right lower extremity: no edema Left lower extremity: no edema Psych Appearance: grossly normal Mental Status: mental status grossly normal Affect: normal affect Attitude: cooperative Thought process: Normal thought process present Coding Level of Care Code Est Pt Prev Care 18-39y(01259) Diagnoses Annual physical exam Z00.00 Seropositive rheumatoid arthritis M05.9 Mild intermittent asthma without complication J45.20 Asthma complication type: uncomplicated Asthma persistence: intermittent Asthma severity: mild Chest pain at rest R07.9 Dermatitis L30.9 Generalized anxiety disorder F41.1 Additional Codes PHQ-9 - 04714 - PHQ-9 Billing: Yes ([id number]) KISHORE-7 Assessment Billing - KISHORE-7 Assessment Tool: KISHORE-7 Assessment 02122 ([id number]) Assessment & Plan Assessment & Plan (1) Annual physical exam: Code(s): Z00.00 - Encounter for general adult medical examination without abnormal findings Category: Medical Plan: As per HPI (2) Seropositive rheumatoid arthritis: Comment: Ddx 12/2024 ++++CCP 12/2024: Methotrexate 02/2025: Humira added Code(s): M05.9 - Rheumatoid arthritis with rheumatoid factor, unspecified Category: Medical Plan: The patient will continue monitoring liver enzymes due to the potential side effects of Humira, with regular lab tests every three weeks as coordinated by his operations support manager. The patient is encouraged to maintain his vegan diet, which has been beneficial for his joint health, and to consider consulting a rotary furnace operator for further guidance on managing rheumatoid arthritis through diet. (3) Asthma: Code(s): J45.909 - Unspecified asthma, uncomplicated Category: Medical Qualifiers: Asthma complication type: uncomplicated Asthma persistence: intermittent Asthma severity: mild Qualified Code(s): J45.20 - Mild intermittent asthma, uncomplicated Plan: Patient reports his asthma has been fairly well controlled with his albuterol inhaler though has been having to use the albuterol inhaler more lately. (4) Chest pain at rest: Code(s): R07.9 - Chest pain, unspecified Category: Medical Plan: For the chest pain and dizziness, a cardiac stress test may be considered to rule out any cardiac issues, although it is unlikely given the patient's age. (5) Dermatitis: Code(s): L30.9 - Dermatitis, unspecified Category: Medical Plan: For the skin dryness, an ointment such as Vaseline is recommended to improve moisture and reduce calcification. (6) Generalized anxiety disorder: Code(s): F41.1 - Generalized anxiety disorder Category: Medical Plan: Patient's KISHORE-7 score positive for anxiety which has been existing condition for him. Patient is not interested in mental health medication at this time. Orders: Orders Comprehensive [place]. Panel Fast Today M05.9 - Rheumatoid arthritis with rheumatoid factor, unspecified Complete Blood Count no Diff Today M05.9 - Rheumatoid arthritis with rheumatoid factor, unspecified CA stress test Today R07.9 - Chest pain, unspecified Referrals [employer] Nutrition Referral M05.9 - Rheumatoid arthritis with rheumatoid factor, unspecified Medications: New triamcinolone acetonide 0.025% 1 appl topical DAILY 80 grams 1RF 30 days L30.9 - Dermatitis, unspecified
[2025-07-24 11:15] VITALS: BP 116/64; PULSE 72; TEMP 522.7; TEMP 973; O2SAT 98; BMI 27.5
== END 2025-07-24 12:21 | disposition home or self-care (01) ==
LOC: HO.HMCH 11:07
PROVIDERS: PCP Physician Assistant; Visit Provider Physician Assistant
DX: Z00.00 Encounter for general adult medical examination without abnormal findings (principal); M05.9 Rheumatoid arthritis with rheumatoid factor, unspecified; J45.20 Mild intermittent asthma, uncomplicated; R07.9 Chest pain, unspecified; L30.9 Dermatitis, unspecified; F41.1 Generalized anxiety disorder

== ENCOUNTER → 2025-07-24 11:07 | Outpatient (BNVA) | payer OTHER, SELFPAY | PROVIDERS: PCP Physician Assistant; Visit Provider Physician Assistant | DX: Z00.00 Encounter for general adult medical examination without abnormal findings (principal); R10.9 Unspecified abdominal pain; M06.9 Rheumatoid arthritis, unspecified; M05.9 Rheumatoid arthritis with rheumatoid factor, unspecified; J45.20 Mild intermittent asthma, uncomplicated; E07.9 Disorder of thyroid, unspecified; L30.9 Dermatitis, unspecified; F41.1 Generalized anxiety disorder | CPT/HCPCS: 96127; 99395 ==

== ENCOUNTER 2025-07-30 09:38 | Outpatient (AMB) | payer OTHER, SELFPAY ==
--- OUTSIDE RECORDS SUMMARY | 2025-04-11 16:17 | XMS_ITS | Encounter Summary ---
Author Organization [facility] Address [address] [facility] [address] [place] [address] Phone Care Team Providers Care Certified Nurse Operating Room Name Role Phone Nash Simons Primary Care Provider + Encounter Details Date Type Department Care Team (Late st Contact Info) Description 04/11/2025 4:17 PM EDT Hospital Encounter [facility] [address] [place] [address] Sara Conner CNP [address] [place] [phone] [email or web address] Social History Tobacco Use Types Packs/Day Years [...] clinician's provided indication for this examination in [facility]: Pain COMPARISON: None FINDINGS: Devices/Tubes/Lines: None. Lungs: No consolidation or pulmonary edema. Pleura: No pleural effusion or pneumothorax. Heart/Mediastinum: Normal heart and mediastinum. Bones/Soft Tissues: No significant skeletal abnormality. No displaced left-sided rib fractures. Procedure Note Alphonso Claudio MD - 04/11/2025 XR CHEST PA AND LATERAL 2 VIEWS, XR RIBS 2 VIEWS (LEFT) Referring clinician's provided indication for this examination in [facility]:Pain COMPARISON: None FINDINGS: Devices/Tubes/Lines: None. Lungs: No consolidation or pulmonary edema. Pleura: No pleural effusion or pneumothorax. Heart/Mediastinum: Normal heart and mediastinum. Bones/Soft Tissues: No significant skeletal abnormality. No displacedleft-sided rib fractures. IMPRESSION: No acute abnormality. Sara Conner TECHNICAL ARTIST IMG XR CHEST Final Resul t documented in this encounter Visit Diagnoses Not on filedocumented in this encounter Care Teams Certified Nurse Operating Room Relationship Specialty Start Date End Date Nash Simons PA [address] [place] [address] PCP - General Physician Underbaster 03/13/25 documented as of this encounter Additional Source Comments The information contained in this document represents components of the legal health record. It is not the complete legal health record.[facility]
--- OUTSIDE RECORDS SUMMARY | 2025-04-11 16:17 | XMS_ITS | Encounter Summary ---
Author Organization [facility] Address [address] [facility] [address] [place] [phone] Phone Care Team Providers Care Field Professional Name Role Phone Nash Simons Primary Care Provider + Encounter Details Date Type Department Care Team (Late st Contact Info) Description 04/11/2025 4:17 PM EDT Hospital Encounter [facility] [address] [place] [phone] Sara Conner CNP [address] [place] [phone] Social History Tobacco Use Types Packs/Day Years [...] provided indication for this examination in [facility]: Pain COMPARISON: None FINDINGS: Devices/Tubes/Lines: None. Lungs: No consolidation or pulmonary edema. Pleura: No pleural effusion or pneumothorax. Heart/Mediastinum: Normal heart and mediastinum. Bones/Soft Tissues: No significant skeletal abnormality. No displaced left-sided rib fractures. Procedure Note Alphonso Claudio MD - 04/11/2025 XR CHEST PA AND LATERAL 2 VIEWS, XR RIBS 2 VIEWS (LEFT) Referring clinician's provided indication for this examination in [facility]:Pain COMPARISON: None FINDINGS: Devices/Tubes/Lines: None. Lungs: No consolidation or pulmonary edema. Pleura: No pleural effusion or pneumothorax. Heart/Mediastinum: Normal heart and mediastinum. Bones/Soft Tissues: No significant skeletal abnormality. No displacedleft-sided rib fractures. IMPRESSION: No acute abnormality. Sara Conner TRAINING AND DEVELOPMENT HEAD IMG XR CHEST Final Resul t documented in this encounter Visit Diagnoses Not on filedocumented in this encounter Care Teams Field Professional Relationship Specialty Start Date End Date Nash Simons PA [address] [place] [address] PCP - General Physician Project Account Manager 03/13/25 documented as of this encounter Additional Source Comments The information contained in this document represents components of the legal health record. It is not the complete legal health record.[facility]
[2025-07-30 10:12] VITALS: BMI 27.5
--- NOTE | 2025-07-30 10:12 | MHC.AMNUTRGE ---
VS Expanded 07/30/25 10:12 07/30/25 11:03 Height 5 ft 9 in 5 ft 9 in Weight 186 lb 8.177 oz 186 lb 12.8 oz BMI 27.5 27.6 Intake Visit Reasons: low inflammatory diet Allergies meloxicam Adverse Reaction (Intermediate, Verified 07/24/25 11:58) ineffective Nutrition Presentation Details: Pt presents for MNt for instructions on anti inflammatory diet Pt has rheumatoid arthritis Pt reports gradually working towards vegan diet. Prior diet was fast food meals/sugary snacks current meal routine life cereal with almond milk salad with beans, cranberry, beets, vegan Caesar dressing soup :butter nut squash with pumpkin seeds, coconut milk , water smoothies: fruit and veg with nuts , almond milk snacks: almond crackers w peanut butter or soy yogurt BS Monitoring Most Recent Diabetes Results: Creatinine, (0.5-1.4) 0.92 mg/dL 06/20/25 BUN, (9-16) 11 mg/dL 06/20/25 Sodium, (135-145) 142 mmol/L 06/20/25 Potassium, (3.3-5.1) 4.1 mmol/L 06/20/25 Chloride, (96-108) 105 mmol/L 06/20/25 Carbon Dioxide, (22-29) 28 mmol/L 06/20/25 Calcium, (8.4-10.2) 9.3 mg/dL 06/20/25 AST, (5-37) 33 U/L 06/20/25 ALT, (0-40) 63 U/L H 06/20/25 Total Protein, (6.5-8.0) 7.3 g/dL 06/20/25 Albumin, (3.5-5.0) 5.0 g/dL 06/20/25 VAL-Zkmpcly-Xs.Jeor Equation Height: 5 ft 9 in Weight: 186 lb 12.8 oz Resting Metabolic Rate: 1814.00 Calculated Activity Level: Mild Activity Calories Needed to Maintain Weight: 2494.25 Diagnosis Nutrition problem #1: food nutri know defi As related to (etiology) #1: diagnosis As evidenced by (sign/symptom) #1: knowledge deficit of diet [facility] Medical History Seropositive rheumatoid arthritis Armpit abscess Armpit abscess Asthma Surgical History History of cystostomy Family History (Updated 07/24/25 @ 12:02 by Nash Simons PA-C) Mother Diabetes Heart problem CAD (coronary artery disease) Osteoporosis Father High blood pressure Asthma Mental health disorder Brother ESRD (end stage renal disease) on dialysis Social History Household Members: Family Housing: Apartment Alcohol intake: never Patient Tobacco Use Status: Never used Tobacco e-Cigarette/Vaping Use: Never Used Second Hand Smoke Exposure: No service: No Current occupational status: unemployed Current occupation: right hand dominant Cognitive needs: No Hearing needs: No Vision needs: No Assessment & Plan Assessment & Plan (1) Seropositive rheumatoid arthritis: Code(s): M05.9 - Rheumatoid arthritis with rheumatoid factor, unspecified Category: Medical Plan: current wt: 84 kg ( 08/09 ) est kcal needs as per MSJ: 2500 est protein needs as per 1 g/kg BW: 80-90 est fluid needs as per 30 ml/kg BW: 2500 Recommended fiber > 12 g /day and gradually increase up to 25-28 g /day or as tolerated Nutrition topics discussed : Reviewed (R), Pt verbalized understanding (V) , not applicable (N/A) R, : Healthy Plate Method Concept: R, : Carbohydrates: food sources of carbohydrates, relationship of carbohydrates to blood glucose, fatty liver GI health. Recommended total amount of carbohydrates per meals and snack. Differences between simple carbohydrates and complex carbohydrates R, : Lean protein foods including vegan , vegetarian sources of protein. Benefits of protein (including but not limited to healing, nutritional value , benefits in weight loss, glucose control R, : Fats : Source of fats, benefits of fats. Difference between saturated and unsaturated fats. Saturated fats and its contribution to inflammation. [place] 3 sources of fats R, V, N/A: Fiber: food sources and role of fiber in the diet (including but not limited to its role as a prebiotic, benefits in constipation, role in IBS , role in glucose control and cholesterol level) R, V, N/A: Hydration: role of hydration and prevention of dehydration or over hydration. Foods and water content. R, V, N/A: Vitamins and Minerals in foods and supplements R, V, N/A: Interpreting food labels, including serving size, macronutrients, vitamins, minerals, allergens, ingredient list , % daily value Patient Instructions: Include omega 3 fatty acids in your diet at least 3 serving/day : seeds/nuts, seaweed continue working on reducing added sugars in your diet Keep hydrated by having water with meals/snacks Coding Level of Care Code Nutr Indiv Intake (37705) Diagnoses Seropositive rheumatoid arthritis M05.9 Time Spent (min) 30
--- OUTSIDE RECORDS SUMMARY | 2025-07-30 11:02 | XMS_ITS | Clinical Summary ---
Author Organization [facility] Address [address] [place] [phone] Phone Care Team Providers Care Government Affairs Director Name Role Phone Greg Carson MD Primary Care Provider [phone] Immunizations Immunization Administration Dates Next Due DTaP [...] age to complete this topic Care Teams Government Affairs Director Relationship Specialty Start Date End Date Greg Carson MD [address] [place] [address] [place] [address] PCP - General 02/21/18
--- OUTSIDE RECORDS SUMMARY | 2025-07-30 11:02 | XMS_ITS | Encounter Summary ---
Author Organization [facility] Address [address] [place] [phone] Phone Care Team Providers Care Key Account Manager Name Role Phone Greg Carson MD Primary Care Provider [phone] Encounter Details Date Type Department Care Team (Late st Contact Info) Description 11/04/2011 Conversion Encounter [facility] [address] [place] [address] Social History Tobacco Use Types Packs/Day Years [...] on filedocumented in this encounter Care Teams Key Account Manager Relationship Specialty Start Date End Date Greg Carson MD [address] [place] [address] PCP - General 02/21/18 documented as of this encounter
--- OUTSIDE RECORDS SUMMARY | 2025-07-30 11:02 | XMS_ITS | Clinical Summary ---
Author Organization [facility] Address [address] [place] [phone] Phone Care Team Providers Care Section Chief Name Role Phone Nash Simons Primary Care [...] Active Active Problems No known active problems Immunizations No known immunizations Social History Tobacco [...] this topic Medical Devices Not on file Insurance [facility] [place] [address] [place] [address] [id number] [place] [address] [id number] [place] [address] A[employer] [facility] Care Teams Section Chief Relationship Specialty [place] [address] [place] [id number] PCP - General Physician Leather Lacer 03/13/25 Additional Source Comments The information contained in this document represents components of the legal health record. It is not the complete legal health record.[facility]
[2025-08-04 11:21] VITALS: BMI 27.6
== END 2025-07-30 10:49 | disposition home or self-care (01) ==
LOC: HO.ENCR 09:39
PROVIDERS: PCP Physician Assistant; Visit Provider Dietitian, Registered
DX: M05.9 Rheumatoid arthritis with rheumatoid factor, unspecified (principal)

== ENCOUNTER → 2025-07-30 09:38 | Outpatient (BNVA) | payer OTHER, SELFPAY | PROVIDERS: PCP Physician Assistant; Visit Provider Dietitian, Registered | DX: M05.70 Rheumatoid arthritis with rheumatoid factor of unspecified site without organ or systems involvement (principal) | CPT/HCPCS: 97802 ==

== ENCOUNTER → 2025-09-19 08:50 | Outpatient (REF) | payer OTHER, SELFPAY ==
--- NOTE | 2025-09-19 08:53 | CA_ITS ---
Acquisition Time: 2025-09-19 08:53:05 Total Exercise Time: 00:09:25 Test Indications: cp Medications: see h&p Protocol: NOVA Max HR: 166 BPM 86% of Pred: 193 BPM Max BP: 168/70 mmHG Max Work Load: 10.7 METS Exercise stress test with exercise 9 mins 25 secs of Nova Protocol, achieving 86% MPHR, with reports of 5/10 left sided sharp chest pain, SOB, dizziness, and nausea, without any arrythmias, with normotensive response to exercise. Without any EKG chnages meeting criteria for ischemia. In recovery, pt's symptoms slowly improved after laying supine. Recommend echo and a stress echo for further eval. Test reviewed with Dr. Trammell. Referred By: Nash Simons Electronically Signed By: Ankur Caceres
[2025-09-19 11:14] LABS: Hematocrit 45.6 % (42.0-52.0); Hemoglobin 15.5 g/dl (14.0-18.0); Mean Corpuscular HGB Conc 34.0 g/dl (31.0-36.0); Mean Corpuscular Hemoglobin 29.7 pg (27.0-33.0); Mean Corpuscular Volume 87.4 fL (80.0-98.0); NRBC Abs Auto 0.000 X10*3/uL (0.0-0.012); NRBC Pct Auto 0.0 /100WBC (0.0-0.2); Platelet Count 175 X10*3/uL (160-400); Red Blood Count 5.22 X10*6/uL (4.60-5.80); White Blood Count 5.4 X10*3/uL (4.8-10.8)
== END ==
LOC: HO.CARD 08:50
PROVIDERS: PCP Physician Assistant; Visit Provider Physician Assistant
DX: R07.9 Chest pain, unspecified (principal); M05.9 Rheumatoid arthritis with rheumatoid factor, unspecified
CPT/HCPCS: 36415; 85027; 93017

== ENCOUNTER → 2025-09-19 08:53 | Outpatient (BNV) | payer OTHER, SELFPAY | PROVIDERS: PCP Physician Assistant | DX: R07.89 Other chest pain (principal); R06.02 Shortness of breath; R42 Dizziness and giddiness; R11.0 Nausea | CPT/HCPCS: 93016; 93018 ==